=== PATIENT | female | born 1980 | race Caucasian/White ===

== ENCOUNTER 2019-12-21 14:15 | Emergency (ER) | payer OTHER, SELFPAY ==
[2019-12-21 14:27] VITALS: BP 150/104; PULSE 118; RESP 20; TEMP 36.4; O2SAT 99; BMI 23.5
--- NOTE | 2019-12-21 14:37 | ED_ITS ---
HPI - Overdose General Chief Complaint: Overdose Stated Complaint: overdose Time Seen by Provider: 12/21/19 14:32 Source: EMS Mode of arrival: ambulatory Limitations: no limitations History of Present Illness HPI Narrative: 39-year-old female used heroin at 04:00 this morning (1 bag sniffing ), significant other witness her with agonal breathing and gave her Narcan patient, [id number] breathing was started with no CPR. The the patient started to wake up after the Narcan and patient was transported to the hospital. Patient complaining nausea and headache. Patient stated that heroin was used to get high and not to hurt herself. complaint: accidental overdose Related Data Previous Rx's Medication Instructions Recorded penicillin G benzathine 2,400,000 2.4 mmu IM QWEEK 7 Days #4 ml 12/16/19 unit/4 mL intramuscular syringe Allergies Allergy/AdvReac Type Severity Reaction Status Date / Time codeine [CODEINE] Allergy Unknown RASH Verified 12/18/19 13:21 meperidine [Demerol] Allergy Unknown rash Verified 12/18/19 13:21 Review of Systems Review of Systems: Yes all other systems are reviewed and are negative Constitutional: Constitutional: Reports as per HPI Eyes: Eyes: Reports as per HPI ENT: Reports system reviewed and no additional complaints, except as documented Cardiovascular: Cardiovascular: Reports no additional cardiovascular complaints Respiratory: Respiratory: Reports no additional respiratory complaints Gastrointestinal: Gastrointestinal: Reports nausea and Reports vomiting Musculoskeletal: Musculoskeletal: Reports no additional musculoskeletal complaints Neurologic: Reports system reviewed and no additional complaints, except as documented and Reports Abnormal speech present Psychiatric: Psychiatric: Reports no additional psychiatric complaints Endocrine: Endocrine: Reports no additional endocrine complaints [facility] Past Medical History Attestation statement: The following information was validated with the patient. Surgical History History of History of benign breast tumor Family History Family History Father FH: prostate cancer Skin cancer Mother Hypertension Family/Other FH: mental illness Social History Social History Advance Directives: No Advance Directives Information Provided: Yes Physical Exam Vital Signs: Vital Signs: Vital Signs Temp Pulse Resp BP Pulse Ox 12/21/19 14:27 97.5 F 118 H 20 150/104 H 99 Body Mass Index 23.5 Const: General: cooperative and tired appearing Orientation/consciousness: oriented to person, oriented to place and oriented to time HENMT: Head: Yes normal to inspection Ears: hearing grossly normal b ilaterally Eyes: General: appearance normal, both eyes and all related structures Visual Amaya: normal visual amaya by confrontation Corneas: corneas normal Pupils: Equal, round and reactive pupils present Neck: Neck: Yes normal visual inspection Chest: Chest palpation & inspection: normal inspection of the chest Resp: Effort & Inspection: normal respiratory effort and able to speak in complete sentences Cardio: Jugular venous distension: no JVD Rate: regular rate Rhythm: regular rhythm GI: Inspection: Yes normal to inspection Percussion: Yes normal to percussion : General: Yes no CVA tenderness Back/Spine/Pelvis: Back: no CVA tenderness Thoracic/Lumbar Spine: thoracic and lumbar spine normal to inspection Skin: General skin exam: no rashes or lesions noted Neuro: General: oriented to person, oriented to place and oriented to time Cranial nerves: Yes CN's II-XII intact bilaterally and Yes Equal, round and reactive pupils present Speech: Abnormal speech present Extrem: General: Yes normal to inspection Course Course Course Narrative: 39-year-old female history of substance abuse, patient used 1 bag of heroin found by her was given Narcan and transported to the hospital, patient complaining of headache, nausea, and vomiting. Patient has a stable vital sign. MDM - Overdose MDM Narrative Medical decision making narrative: 36-year-old female history of drug abuser, presented after having Narcan after use a bag of heroin. Patient in the emergency department feeling nauseous headache. Leukocytosis probably reactionary to stress. Patient feels better. Patient now is receiving 1 L fluid. Plan is discharge after finished fluid. Medical Records Attestation: I reviewed the patient's medical records. Lab Data Attestation: I reviewed the patient's lab results. Result diagrams: 12/21/19 15:51 12/21/19 15:51 Labs: Lab Results 12/21/19 12/21/19 12/21/19 Range/Units 15:38 15:51 15:51 WBC 16.1 H (4.8-10.8) X10*3/uL RBC 5.04 (4.20-5.50) X10*6/uL Hgb 14.4 (12.0-16.0) g/dl Hct 41.5 (37-47) % MCV 82.3 (80-98) fL MCH 28.6 (27.0-33.0) pg MCHC 34.7 (31.0-35.0) g/dl RDW 14.3 (11.0-16.0) % Plt Count 344 (160-400) X10*3/uL MPV 9.6 (9.4-12.3) fL Absolute Nucleated RBC 0.000 (0.0-0.012) X10*3/uL Nucleated RBC % (auto) 0.0 (0.0-0.2) /100WBC Sodium 134 L (135-145) mmol/L Potassium 4.2 (3.3-5.1) mmol/l Chloride 96 (96-108) mmol/L Carbon Dioxide 21 L (22-29) mmol/L Anion Gap 21 H (12-20) BUN 19 H (9-16) mg/dL Creatinine 0.99 (0.5-1.4) mg/dL Estim Creat Clear Calc 74.9 Estimated GFR > 60 Random Glucose 109 (60-115) mg/dL Calcium 10.4 H (8.4-10.2) mg/dL Urine Color YELLOW Urine Appearance CLOUDY Urine pH 5.5 (5.0-8.0) Ur Specific Eden >= 1.030 H (1.005-1.025) Urine Protein 2+ H (NEG-TRACE) MG/DL Urine Glucose (UA) 500 H (NEG) MG/DL Urine Ketones 5 (NEG) MG/DL Urine Blood TRACE (NEG) Urine Nitrite NEG (NEG) Ur Leukocyte Esterase NEG (NEG) Urine RBC 0-2 (0) /HPF Urine WBC 0 (0-4) /HPF Ur Squamous Epith Cells 4+ /LPF Urine Bacteria 2+ /LPF Ethyl Alcohol mg/dL 12/21/19 Range/Units 15:51 WBC (4.8-10.8) X10*3/uL RBC (4.20-5.50) X10*6/uL Hgb (12.0-16.0) g/dl Hct (37-47) % MCV (80-98) fL MCH (27.0-33.0) pg MCHC (31.0-35.0) g/dl RDW (11.0-16.0) % Plt Count (160-400) X10*3/uL MPV (9.4-12.3) fL Absolute Nucleated RBC (0.0-0.012) X10*3/uL Nucleated RBC % (auto) (0.0-0.2) /100WBC Sodium (135-145) mmol/L Potassium (3.3-5.1) mmol/l Chloride (96-108) mmol/L Carbon Dioxide (22-29) mmol/L Anion Gap (12-20) BUN (9-16) mg/dL Creatinine (0.5-1.4) mg/dL Estim Creat Clear Calc Estimated GFR Random Glucose (60-115) mg/dL Calcium (8.4-10.2) mg/dL Urine Color Urine Appearance Urine pH (5.0-8.0) Ur Specific Eden (1.005-1.025) Urine Protein (NEG-TRACE) MG/DL Urine Glucose (UA) (NEG) MG/DL Urine Ketones (NEG) MG/DL Urine Blood (NEG) Urine Nitrite (NEG) Ur Leukocyte Esterase (NEG) Urine RBC (0) /HPF Urine WBC (0-4) /HPF Ur Squamous Epith Cells /LPF Urine Bacteria /LPF Ethyl Alcohol < 10 mg/dL Discharge Plan Discharge Clinical Impression: Heroin overdose Patient Disposition: Home, Self-Care Instructions: Opioid Use Disorder (ED) Prescriptions: No Action penicillin G benzathine 2,400,000 unit/4 mL syringe 2.4 mmu IM QWEEK 7 Days Qty: 4 RF: 0
[2019-12-21 15:43] LABS: Appearance Urine CLOUDY; Color Urine YELLOW; Glucose Urine UA 500 MG/DL (NEG); Leukocyte Esterase Urine NEG (NEG); Nitrite Urine NEG (NEG); PH 5.5 (5.0-8.0); Specific Gravity - Urine >= 1.030 (1.005-1.025); Urine Blood TRACE (NEG); Urine Ketones 5 MG/DL (NEG); Urine Protein 2+ MG/DL (NEG-TRACE)
[2019-12-21 15:52] LABS: Bacteria Urine 2+ /LPF; RBC Urine 0-2 /HPF (0); Squamous Epithelial Cell Urine 4+ /LPF; WBC Urine 0 /HPF (0-4)
[2019-12-21 15:56] LABS: Hematocrit 41.5 % (37-47); Hemoglobin 14.4 g/dl (12.0-16.0); Mean Corpuscular HGB Conc 34.7 g/dl (31.0-35.0); Mean Corpuscular Hemoglobin 28.6 pg (27.0-33.0); Mean Corpuscular Volume 82.3 fL (80-98); Mean Platelet Volume 9.6 fL (9.4-12.3); Platelet Count 344 X10*3/uL (160-400); Red Blood Count 5.04 X10*6/uL (4.20-5.50); Red Cell Distribution Width 14.3 % (11.0-16.0); White Blood Count 16.1 X10*3/uL (4.8-10.8)
[2019-12-21] MEDS: 0.9 % Sodium Chloride 1,000 ML 999 ML IVCONT (16:00)
[2019-12-21] MEDS: ondansetron HCL 4 MG/2 ML VIAL IVPUSH (16:00)
[2019-12-21] MEDS: Acetaminophen 325 MG TABLET 650 MG PO (16:00)
[2019-12-21 16:25] LABS: Ethanol < 10 mg/dL
[2019-12-21 16:32] LABS: Anion Gap 21 (12-20); Blood Urea Nitrogen 19 mg/dL (9-16); Calcium 10.4 mg/dL (8.4-10.2); Carbon Dioxide 21 mmol/L (22-29); Chloride 96 mmol/L (96-108); Creatinine Clr Calc Pharmacy 74.9; Estimated Glomerular Filt Rate > 60; Glucose Random 109 mg/dL (60-115); Potassium 4.2 mmol/l (3.3-5.1); Sodium 134 mmol/L (135-145)
[2019-12-21 17:30] LABS: Alanine Aminotransferase 33 U/L (0-31); Albumin Level 4.9 g/dL (3.5-5.0); Alkaline Phosphatase 103 U/L (39-117); Aspartate Amino Transferase 33 U/L (5-31); Bilirubin Direct 0.2 mg/dL (0.0-0.5); Bilirubin Total 0.4 mg/dL (0.0-1.0); Lipase 25 U/L (8-78); Total Protein 9.4 g/dL (6.5-8.0)
[2019-12-21 17:31] VITALS: BP 119/75; PULSE 90; RESP 16; TEMP 37.3; O2SAT 92
[2019-12-21 18:07] VITALS: BP 117/88; PULSE 88; RESP 18
== END 2019-12-21 18:11 | disposition home or self-care (01) ==
PROVIDERS: Emergency Provider Emergency Medicine; PCP Internal Medicine
DX: T40.1X1A Poisoning by heroin, accidental (unintentional), initial encounter (principal); R06.89 Other abnormalities of breathing; Y92.009 Unspecified place in unspecified non-institutional (private) residence as the place of occurrence of the external cause; F11.10 Opioid abuse, uncomplicated
CPT/HCPCS: 36415; 80048; 80076; 80320; 81001; 83690; 85027; 96361; 96374; 99285; J2405

== ENCOUNTER 2019-12-28 23:15 | Emergency (ER) | payer OTHER, SELFPAY ==
[2019-12-28 23:44] VITALS: BP 135/85; PULSE 92; RESP 16; TEMP 36.8; O2SAT 97; BMI 23.5
--- NOTE | 2019-12-28 23:45 | ED.GENADULT ---
HPI - General Adult General Chief complaint: Medical Clearance Stated complaint: medical clearance Time Seen by Provider: 12/28/19 23:40 Source: patient Mode of arrival: ambulatory Limitations: no limitations History of Present Illness HPI narrative: has no symptoms, needs to go to rehab, her titers are still positive for syphillis needs repeat medications MD complaint: syphillis titers still positive after IM PCN 1 month ago Onset (ago): month(s) (1) Radiation: non-radiation Severity: mild Relieving factors: none Exacerbating factors: none Associated symptoms: denies other symptoms Related Data Previous Rx's Medication Instructions Recorded doxycycline hyclate 100 mg PO BID 14 Days #28 cap 12/28/19 Allergies Allergy/AdvReac Type Severity Reaction Status Date / Time codeine [CODEINE] Allergy Unknown RASH Verified 12/18/19 13:21 meperidine [Demerol] Allergy Unknown rash Verified 12/18/19 13:21 Review of Systems Review of Systems: Constitutional : No Fever, No Chills Eyes: No Eye Pain, No Swelling, No Redness, No Foreign Body Cardiovascular : No Chest Pain, No SOB Respiratory : No Cough, No Dyspnea Gastrointestinal : No Nausea, No Vomiting, No Diarrhea, No abdominal Pain Genitourinary : No Dysuria, No Hematuria, no discharge Musculoskeletal : no joint pain, No Myalgias, No Joint Swelling Skin : No Skin lacerations, No rash Neuro : No Weakness, No Numbness, No Dizziness All other systems reviewed and are negative [facility] Past Medical History Medical History (Updated 12/28/19 @ 23:48 by Alea Paige) Bipolar depression Hepatitis C Surgical History History of History of benign breast tumor Family History Family History Father FH: prostate cancer Skin cancer Mother Hypertension Family/Other FH: mental illness Social History Social History (Updated 12/28/19 @ 23:51 by Essence Arciniega DO) Alcohol intake: unknown Smoking Status: Unknown if ever smoked Substance Use Type: Former Substance User Physical Exam Vital Signs: Appearance: Alert. Oriented X3. No acute distress. Eyes: Pupils equal, round and reactive to light. ENT: Pharynx normal. Neck: Normal inspection. Neck supple. CVS: Normal heart rate and rhythm. Pulses normal. Respiratory: No respiratory distress. Breath sounds normal. Abdomen: Soft and nontender. Skin: Skin warm and dry. Normal skin color. Normal skin turgor. Extremities: No lower extremity edema. No calf ttp Neuro: Oriented X 3. No motor deficit. No sensory deficit. Medical Decision Making MDM Narrative Medical decision making narrative: needs detox clearance had syphillis early (just rash) given IM PCN 1 month ago, titers still positive no symptoms at this time will treat with doxy for 14 days and refer to PCP. Discharge Plan Discharge Clinical Impression: Syphilis Patient Disposition: Home, Self-Care Instructions: Syphilis (ED) Additional Instructions: YOU ARE MEDICALLY CLEARED FOR TREATMENT AT A REHAB FACILITY Prescriptions: New doxycycline hyclate 100 mg capsule 100 mg PO BID 14 Days Qty: 28 RF: 0 Referrals: Jenna Emerson MD [Primary Care Provider] - 2 days (recheck titers )
--- NOTE | 2019-12-28 23:54 | PC.NURSE ---
THIS NURSE AND DR RAINES DISCUSSED WITH PATIENT ABOUT SI. DENIES ANY SI AT THIS TIME.
== END 2019-12-29 00:09 | disposition home or self-care (01) ==
LOC: HO.ED 23:59
PROVIDERS: Emergency Provider Emergency Medicine; PCP Internal Medicine
DX: A53.9 Syphilis, unspecified (principal); Z79.899 Other long term (current) drug therapy
CPT/HCPCS: 99283

== ENCOUNTER → 2020-01-28 08:29 | Outpatient (BNVA) | payer OTHER, SELFPAY | PROVIDERS: PCP Internal Medicine; Referring Provider Internal Medicine; Visit Provider Physician Assistant | DX: Z76.89 Persons encountering health services in other specified circumstances (principal) ==

== ENCOUNTER 2020-02-07 12:52 | Outpatient (REF) | payer OTHER, SELFPAY ==
[2020-02-07 14:18] LABS: MANUAL DIFF FLAG NO
[2020-02-07 14:22] LABS: Basophils Percent Auto 0.4 % (0-2); Eosinophils Absolute Auto 0.3 X10*3/uL (0.0-0.4); Eosinophils Percent Auto 4.6 % (0-4); Hematocrit 36.7 % (37-47); Hemoglobin 12.7 g/dl (12.0-16.0); Imm Gran Abs Auto 0.01 X10*3/uL (0.00-0.03); Imm Gran Pct Auto 0.1 % (0.0-0.4); Lymphocytes Percent Auto 43.7 % (20-40); Mean Corpuscular HGB Conc 34.6 g/dl (31.0-35.0); Mean Corpuscular Volume 86.6 fL (80-98); Mean Platelet Volume 11.2 fL (9.4-12.3); Monocytes Absolute Auto 0.3 X10*3/uL (0.1-1.2); Monocytes Percent Auto 4.7 % (2-11); Neutrophils Absolute Auto 3.2 X10*3/uL (2.0-8.3); Neutrophils Percent Auto 46.5 % (45-73); Platelet Count 194 X10*3/uL (160-400); Red Blood Count 4.24 X10*6/uL (4.20-5.50); White Blood Count 6.8 X10*3/uL (4.8-10.8)
[2020-02-07 15:01] LABS: Alanine Aminotransferase 24 U/L (0-31); Albumin Level 4.3 g/dL (3.5-5.0); Alkaline Phosphatase 69 U/L (39-117); Anion Gap 12 (12-20); Aspartate Amino Transferase 24 U/L (5-31); Bilirubin Total 0.3 mg/dL (0.0-1.0); Blood Urea Nitrogen 10 mg/dL (9-16); Carbon Dioxide 28 mmol/L (22-29); Chloride 102 mmol/L (96-108); Estimated Glomerular Filt Rate > 60; Glucose Random 95 mg/dL (60-115); Potassium 4.1 mmol/l (3.3-5.1); Sodium 138 mmol/L (135-145); Total Protein 7.7 g/dL (6.5-8.0)
[2020-02-07 15:08] LABS: HCG Quantitative < 2 mIU/mL
[2020-02-07 15:21] LABS: Syphilis Screen Reactive (Nonreactive)
[2020-02-10 08:03] LABS: HIV AB/AG Nonreactive (Nonreactive); HIV Num 1 0.19 S/CO (0.00-0.99)
[2020-02-13 23:03] LABS: Hepatitis C Genotype Not Detected
[2020-02-17 14:14] LABS: RPR Quantitative Reactive 1:2 (Nonreactive)
[2020-02-17 14:15] LABS: T.Pallidum Particle Agg Test Reactive (Nonreactive)
== END 2020-02-07 12:53 | disposition home or self-care (01) ==
LOC: HO.LAB 12:52
PROVIDERS: Absent Provider Physician Assistant; PCP Internal Medicine; Referring Provider Internal Medicine; Visit Provider Internal Medicine
DX: A53.9 Syphilis, unspecified (principal); R11.0 Nausea; R10.11 Right upper quadrant pain; B19.20 Unspecified viral hepatitis C without hepatic coma; F11.90 Opioid use, unspecified, uncomplicated
CPT/HCPCS: 36415; 80053; 84702; 85025; 86592; 86780; 87389; 87902

== ENCOUNTER → 2020-02-25 13:19 | Outpatient (BNVA) | payer OTHER, SELFPAY | PROVIDERS: PCP Internal Medicine; Referring Provider Internal Medicine; Visit Provider Physician Assistant | DX: Z76.89 Persons encountering health services in other specified circumstances (principal) ==

== ENCOUNTER 2020-03-11 08:23 | Outpatient (REF) | payer OTHER, SELFPAY | END 2020-03-11 08:24 | disposition home or self-care (01) | LOC: HO.LAB 08:23 | PROVIDERS: PCP Internal Medicine; Visit Provider Physician Assistant | DX: B17.10 Acute hepatitis C without hepatic coma (principal) | CPT/HCPCS: 36415; 87522 ==

== ENCOUNTER → 2020-03-18 12:22 | Outpatient (BNVA) | payer OTHER, SELFPAY | PROVIDERS: PCP Internal Medicine; Visit Provider Physician Assistant | DX: Z76.89 Persons encountering health services in other specified circumstances (principal) ==

== ENCOUNTER 2020-03-25 07:20 | Outpatient (REF) | payer OTHER, SELFPAY ==
[2020-03-25 08:26] LABS: Alanine Aminotransferase 57 U/L (0-31); Albumin Level 4.3 g/dL (3.5-5.0); Alkaline Phosphatase 97 U/L (39-117); Aspartate Amino Transferase 39 U/L (5-31); Bilirubin Direct < 0.2 mg/dL (0.0-0.5); Bilirubin Total 0.2 mg/dL (0.0-1.0); Total Protein 7.8 g/dL (6.5-8.0)
[2020-03-25 09:53] LABS: HBS Num1 18.17 mIU/mL (0-7.99); HBc Num1 0.14 S/CO (0.00-0.79); HBsAGNum1 0.15 S/CO (0.00-0.99); Hepatitis B Core Antibody Nonreactive (Nonreactive); Hepatitis B Surface Antigen Negative (Negative); ~Hepatitis B Surface Antibody REACTIVE (Nonreactive)
[2020-03-26 11:53] LABS: Hepatitis B Viral DNA Qn - cp <1.00 NOT DETECTED Log IU/mL (NOT DETECTED); Hepatitis B Viral DNA Qn-IU/mL <10 NOT DETECTED IU/mL (NOT DETECTED)
[2020-03-26 12:12] LABS: Hepatitis BE Antibody NON-REACTIVE (NON-REACTIVE); Hepatitis BE Antigen NON-REACTIVE (NON-REACTIVE)
== END 2020-03-25 07:21 | disposition home or self-care (01) ==
LOC: HO.LAB 07:20
PROVIDERS: PCP Internal Medicine; Visit Provider Physician Assistant
DX: R74.01 Elevation of levels of liver transaminase levels (principal); B18.1 Chronic viral hepatitis B without delta-agent; B19.20 Unspecified viral hepatitis C without hepatic coma; R10.11 Right upper quadrant pain
CPT/HCPCS: 36415; 80076; 86704; 86706; 86707; 87340; 87350; 87517

== ENCOUNTER → 2020-03-30 09:27 | Outpatient (BNVA) | payer OTHER, SELFPAY | PROVIDERS: PCP Internal Medicine; Visit Provider Physician Assistant ==

== ENCOUNTER → 2020-04-09 11:34 | Outpatient (BNVA) | payer OTHER, SELFPAY | PROVIDERS: PCP Internal Medicine; Visit Provider Physician Assistant ==

== ENCOUNTER 2020-09-11 17:08 | Outpatient (REF) | payer OTHER, SELFPAY ==
[2020-09-12 13:35] LABS: BV Int Neg Control Negative (Negative); BV Int Pos Control Positive (Positive)
== END 2020-09-11 17:09 | disposition home or self-care (01) ==
LOC: HO.LNP 17:08
PROVIDERS: Visit Provider Hospitalist
DX: N76.0 Acute vaginitis (principal)
CPT/HCPCS: 87480; 87510; 87660

== ENCOUNTER 2021-01-26 02:09 | Emergency (ER) | payer OTHER, SELFPAY ==
[2021-01-26 02:16] VITALS: BP 131/79; PULSE 93; RESP 20; TEMP 36.6; O2SAT 98; BMI 26.9
[2021-01-26 02:44] VITALS: BP 124/77; PULSE 83; RESP 14; TEMP 37.2; O2SAT 96
[2021-01-26 02:56] LABS: MANUAL DIFF FLAG NO
[2021-01-26 02:57] LABS: Basophils Percent Auto 0.3 % (0-2); Eosinophils Absolute Auto 0.7 X10*3/uL (0.0-0.4); Eosinophils Percent Auto 8.2 % (0-4); Hematocrit 38.9 % (37.0-47.0); Hemoglobin 13.2 g/dl (12.0-16.0); Imm Gran Abs Auto 0.01 X10*3/uL (0.00-0.03); Imm Gran Pct Auto 0.1 % (0.0-0.4); Lymphocytes Absolute Auto 2.6 X10*3/uL (1.2-4.9); Lymphocytes Percent Auto 29.6 % (20-40); Mean Corpuscular HGB Conc 33.9 g/dl (31.0-35.0); Mean Corpuscular Hemoglobin 29.8 pg (27.0-33.0); Mean Corpuscular Volume 87.8 fL (80.0-98.0); Mean Platelet Volume 9.9 fL (9.4-12.3); Monocytes Absolute Auto 0.4 X10*3/uL (0.1-1.2); Monocytes Percent Auto 4.5 % (2-11); Neutrophils Percent Auto 57.3 % (45-73); Platelet Count 261 X10*3/uL (160-400); Red Blood Count 4.43 X10*6/uL (4.20-5.50); Red Cell Distribution Width 12.6 % (11.0-16.0); White Blood Count 8.7 X10*3/uL (4.8-10.8)
--- NOTE | 2021-01-26 02:59 | ED_ITS ---
HPI - Skin/Abscess/Foreign Bdy General Chief complaint: Skin/Abscess/Foreign Body Stated complaint: ? Infection Time Seen by Provider: 01/26/21 02:59 Source: patient Mode of arrival: ambulatory Limitations: no limitations History of Present Illness HPI narrative: 40-year-old female came in for evaluation of possible infected area on the face For 1 week. Patient declined any fever or chills, patient had those spots in the past was given antibiotic and patient felt better. Related Data Previous Rx's Medication Instructions Recorded paroxetine HCl 40 mg tablet 40 mg PO DAILY 90 Days #90 tab 04/09/20 gabapentin 600 mg tablet 600 mg PO BID 30 Days #60 tab 12/16/20 clonidine HCl 0.1 mg tablet 0.1 mg PO BID 30 Days #60 tab 01/03/21 hydroxyzine HCl 50 mg tablet 50 mg PO BID PRN 30 Days #60 tab 01/03/21 risperidone 2 mg tablet 2 mg PO BEDTIME 30 Days #30 tab 01/04/21 trazodone 50 mg tablet 100 mg PO BEDTIME PRN 90 Days #180 01/04/21 tab baclofen 10 mg tablet 10 mg PO TID 30 Days #90 tab 01/11/21 doxycycline hyclate 100 mg capsule 100 mg PO BID #14 cap 01/26/21 Allergies Allergy/AdvReac Type Severity Reaction Status Date / Time codeine [CODEINE] Allergy Intermediate RASH Verified 10/28/20 15:40 meperidine [Demerol] Allergy Intermediate rash Verified 10/28/20 15:40 Review of Systems Review of Systems: All other systems are reviewed and are negative Constitutional: Reports as per HPI and Reports no additional constitutional complaints Eyes: Reports as per HPI and Reports no additional eye complaints Reports system reviewed and no additional complaints, except as documented Cardiovascular: Reports as per HPI and Reports no additional cardiovascular complaints Respiratory: Reports as per HPI and Reports no additional respiratory complaints Gastrointestinal: Reports as per HPI and Reports no additional gastrointestinal complaints Genitourinary: Reports no additional female genitourinary complaints Musculoskeletal: Reports no additional musculoskeletal complaints Skin/Breast: Reports system reviewed and no additional complaints, except as docu Psychiatric: Reports no additional psychiatric complaints Endocrine: Reports no additional endocrine complaints Hematologic/Lymphatic: Reports no additional hematologic/lymphatic complaints Allergic/Immunologic: Reports no additional allergic/immunologic complaints Reports system reviewed and no additional complaints, except as documented and Reports Abnormal speech present PMFSH Past Medical History Medical History Bipolar depression HCV (hepatitis C virus) Hepatitis C Syphilis Surgical History History of History of benign breast tumor History of meniscectomy of left knee Family History Family History Father FH: prostate cancer Skin cancer Mother Hypertension Family/Other FH: mental illness Social History Social History Household Members: Children Household Members Other:: son Housing: Condominium Alcohol intake: current Alcohol intake frequency: a few times a week Alcohol type: hard liquor Patient Tobacco Use Status: Current everyday Tobacco user Cigarettes Per Day: 6 Substance Use Type: Crack/Cocaine, Former Substance User, IV Drugs and Marijuana Advance Directives: No Advance Directives Information Provided: No service: No Current occupational status: employed Current occupation: [employer] Physical Exam Vital Signs: Vital Signs: Last Vital Signs Temp 98.9 F 01/26/21 02:44 Pulse 83 01/26/21 02:44 Resp 14 01/26/21 02:44 BP 124/77 01/26/21 02:44 Pulse Ox 96 01/26/21 02:44 Body Mass Index 26.9 vital signs have been reviewed as appeared to be correct. Blood pressure normal. Heart rate normal. Respiration rate normal. Temperature normal. Oxygen saturation normal. Appearance: Alert. Oriented X3. No acute distress. Head: Normal external exam. Normocephalic. Atraumatic. No Avina signs noted. No raccoon eyes noted Facial exam: Multiple areas of maculopapular redness around the mouth and on the cheek. No fluctuation. Eyes: PERRLA. EOMI. Conjunctiva and sclera normal. Eyelids normal. ENT: TM's Normal. Pharynx normal. Uvula midline. Moist mucous membranes. No trismus noted. No drooling noted. No muffled voice noted. Neck: Normal inspection. Neck supple. FROM. No adenopathy. Thyroid Normal. No meningeal signs. No neck mass noted. CVS: Normal heart rate and rhythm. Heart sound normal. No murmurs noted. Pulses normal throughout. Respiratory: No respiratory distress. Painless inspiration. Breath sounds normal. No wheezes/rales/rhonchi noted. Chest nontender. No accessory muscle usage noted or decreased air movement noted. Abdomen: Soft and nontender. Bowel sounds normal in all 4 quadrants. No distention noted. No organomegaly noted. No visible injury noted. Back: No CVA tenderness. Full range of motion noted. Skin: Skin warm and dry. Normal skin color. Normal skin turgor. No rashes/lesions/lacerations noted. Extremities: No lower extremity edema. Extremities exhibit normal range of motion. Extremities nontender. Neuro: Oriented X 3. Cranial nerve exam: II-XII are grossly intact No motor deficit. No sensory deficit. Reflexes normal. Course Course Course Narrative: Assessment and plan. 40-year-old female came in with areas of cellulitis on the face. I explained the patient past to treated as impetigo with a mupirocin but patient is insisting to take systemic antibiotic instead. MDM - Skin/Abscess/Foreign Bdy Lab Data Result diagrams: 01/26/21 02:52 01/26/21 02:52 Discharge Plan Discharge Clinical Impression: Impetigo Patient Disposition: Home, Self-Care Instructions: Impetigo (ED) Prescriptions: New doxycycline hyclate 100 mg capsule 100 mg PO BID Qty: 14 RF: 0 No Action paroxetine HCl 40 mg tablet 40 mg PO DAILY 90 Days Qty: 90 RF: 3 gabapentin 600 mg tablet 600 mg PO BID 30 Days Qty: 60 RF: 1 hydroxyzine HCl 50 mg tablet 50 mg PO BID PRN (Reason: anxiety) 30 Days Qty: 60 RF: 6 clonidine HCl 0.1 mg tablet 0.1 mg PO BID 30 Days Qty: 60 RF: 3 risperidone 2 mg tablet 2 mg PO BEDTIME 30 Days Qty: 30 RF: 0 trazodone 50 mg tablet 100 mg PO BEDTIME PRN (Reason: sleep) 90 Days Qty: 180 RF: 1 baclofen 10 mg tablet 10 mg PO TID 30 Days Qty: 90 RF: 2 Referrals: Jenna Emerson MD [Primary Care Provider] - 2 days
[2021-01-26 03:19] LABS: Anion Gap 13 (12-20); Blood Urea Nitrogen 12 mg/dL (9-16); Calcium 9.5 mg/dL (8.4-10.2); Carbon Dioxide 26 mmol/L (22-29); Chloride 104 mmol/L (96-108); Creatinine Clr Calc Pharmacy 92.3; Estimated Glomerular Filt Rate > 60; Glucose Random 123 mg/dL (60-115); Potassium 3.7 mmol/L (3.3-5.1); Sodium 139 mmol/L (135-145)
== END 2021-01-26 03:12 | disposition home or self-care (01) ==
PROVIDERS: Emergency Provider Emergency Medicine; PCP Internal Medicine
DX: L01.00 Impetigo, unspecified (principal); F14.10 Cocaine abuse, uncomplicated; F11.10 Opioid abuse, uncomplicated; F17.200 Nicotine dependence, unspecified, uncomplicated; Z71.6 Tobacco abuse counseling; Z79.899 Other long term (current) drug therapy
CPT/HCPCS: 36415; 80048; 85025; 99284

== ENCOUNTER 2021-01-28 02:47 | Emergency (ER) | payer OTHER, SELFPAY ==
[2021-01-28 02:51] VITALS: BP 138/75; PULSE 86; RESP 18; O2SAT 98; BMI 26.6
--- NOTE | 2021-01-28 03:52 | ED_ITS ---
HPI - General Adult General Chief complaint: General Medical Stated complaint: infection Time Seen by Provider: 01/28/21 03:30 Source: patient Mode of arrival: ambulatory Limitations: no limitations History of Present Illness HPI narrative: Patient with history of anxiety the scratch all the time her face comes here with scratches on the face with folliculitis seen her PCP was prescribed clindamycin which is not covered by her insurance Related Data Previous Rx's Medication Instructions Recorded paroxetine HCl 40 mg tablet 40 mg PO DAILY 90 Days #90 tab 04/09/20 gabapentin 600 mg tablet 600 mg PO BID 30 Days #60 tab 12/16/20 clonidine HCl 0.1 mg tablet 0.1 mg PO BID 30 Days #60 tab 01/03/21 hydroxyzine HCl 50 mg tablet 50 mg PO BID PRN 30 Days #60 tab 01/03/21 risperidone 2 mg tablet 2 mg PO BEDTIME 30 Days #30 tab 01/04/21 trazodone 50 mg tablet 100 mg PO BEDTIME PRN 90 Days #180 01/04/21 tab baclofen 10 mg tablet 10 mg PO TID 30 Days #90 tab 01/11/21 doxycycline hyclate 100 mg capsule 100 mg PO BID #14 cap 01/26/21 doxycycline hyclate 100 mg tablet 100 mg PO BID #20 tab 01/28/21 Allergies Allergy/AdvReac Type Severity Reaction Status Date / Time codeine [CODEINE] Allergy Intermediate RASH Verified 01/28/21 02:49 meperidine [Demerol] Allergy Intermediate rash Verified 01/28/21 02:49 Review of Systems Review of Systems: Yes all other systems are reviewed and are negative PMFSH Past Medical History Medical History Bipolar depression HCV (hepatitis C virus) Hepatitis C Syphilis Surgical History History of History of benign breast tumor History of meniscectomy of left knee Family History Family History Father FH: prostate cancer Skin cancer Mother Hypertension Family/Other FH: mental illness Social History Social History Household Members: Children Household Members Other:: son Housing: Condominium Alcohol intake: unknown Patient Tobacco Use Status: Current everyday Tobacco user Cigarettes Per Day: 6 Substance Use Type: Crack/Cocaine, Former Substance User, IV Drugs and Mariju avel Advance Directives: No Advance Directives Information Provided: Yes Patient : No service: No Current occupational status: employed Current occupation: [employer] Physical Exam Vital Signs: Vital Signs: Last Vital Signs Pulse 86 01/28/21 02:51 Resp 18 01/28/21 02:51 BP 138/75 01/28/21 02:51 Pulse Ox 98 01/28/21 02:51 Body Mass Index 26.6 Const: General: comfortable and no acute distress HENMT: Face images: 1. Multiple small folliculitis marked on the face with surrounding inflammation Skin: Other: Multiple scratch tony with folliculitis of the face with surrounding inflammation no deeper abscess Discharge Plan Discharge Clinical Impression: Folliculitis Patient Disposition: Home, Self-Care Instructions: Folliculitis (ED) Additional Instructions: Local care advised stop scratching your face Take antibiotics as advised Prescriptions: New doxycycline hyclate 100 mg tablet 100 mg PO BID Qty: 20 RF: 0 No Action paroxetine HCl 40 mg tablet 40 mg PO DAILY 90 Days Qty: 90 RF: 3 gabapentin 600 mg tablet 600 mg PO BID 30 Days Qty: 60 RF: 1 hydroxyzine HCl 50 mg tablet 50 mg PO BID PRN (Reason: anxiety) 30 Days Qty: 60 RF: 6 clonidine HCl 0.1 mg tablet 0.1 mg PO BID 30 Days Qty: 60 RF: 3 risperidone 2 mg tablet 2 mg PO BEDTIME 30 Days Qty: 30 RF: 0 trazodone 50 mg tablet 100 mg PO BEDTIME PRN (Reason: sleep) 90 Days Qty: 180 RF: 1 baclofen 10 mg tablet 10 mg PO TID 30 Days Qty: 90 RF: 2 doxycycline hyclate 100 mg capsule 100 mg PO BID Qty: 14 RF: 0
--- NOTE | 2021-01-28 03:59 | PC.NURSE ---
pt was seen by provider and then went to leave and pt was told to wait you have a medication coming and your discharge papers. pt was not present when medication was ready and not seen in the ed or waiting room. pt does know that her new script has been sent to her pharmacy. pt will pick up attendant the medication at the pharmacy.
== END 2021-01-28 03:57 | disposition home or self-care (01) ==
LOC: HO.ED 03:42
PROVIDERS: Emergency Provider Internal Medicine; PCP Internal Medicine
DX: L73.9 Follicular disorder, unspecified (principal); F14.10 Cocaine abuse, uncomplicated; F11.10 Opioid abuse, uncomplicated; F12.10 Cannabis abuse, uncomplicated; F17.200 Nicotine dependence, unspecified, uncomplicated; Z71.6 Tobacco abuse counseling; Z79.899 Other long term (current) drug therapy
CPT/HCPCS: 99283

== ENCOUNTER 2021-03-17 17:04 | Emergency (ER) | payer OTHER, SELFPAY | END 2021-03-17 17:48 | disposition left against medical advice (07) | LOC: HO.ED 17:31 | PROVIDERS: Emergency Provider Emergency Medicine; PCP Internal Medicine | DX: L08.9 Local infection of the skin and subcutaneous tissue, unspecified (principal) ==

== ENCOUNTER 2021-04-30 12:26 | Emergency (ER) | payer OTHER, SELFPAY ==
[2021-04-30 12:30] VITALS: BP 132/84; PULSE 92; O2SAT 100
[2021-04-30 12:33] VITALS: BP 108/64; PULSE 79; RESP 17; TEMP 36.7; O2SAT 98; BMI 24.3
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
[2021-04-30] MEDS: cefTRIAXone sodium 500 MG, Lidocaine HCl 1 % MPF 1 ML IM (13:02)
[2021-04-30 13:23] LABS: Appearance Urine CLEAR; Color Urine YELLOW; Glucose Urine UA NEG (NEG); Leukocyte Esterase Urine NEG (NEG); Nitrite Urine NEG (NEG); Specific Gravity - Urine >= 1.030 (1.005-1.025); Urine Blood NEG (NEG); Urine Ketones NEG (NEG); Urine Protein NEG (NEG-TRACE)
[2021-04-30 13:24] LABS: UPreg QC Valid YES; Urine Pregnancy NEGATIVE (NEGATIVE)
[2021-04-30 15:03] LABS: CT PCR NOT DETECTED (Not Detect.); NG PCR NOT DETECTED (Not Detect.)
[2021-05-01 11:57] LABS: BV Int Neg Control Negative (Negative); BV Int Pos Control Positive (Positive)
== END 2021-04-30 14:38 | disposition home or self-care (01) ==
PROVIDERS: Physician Assistant; Emergency Provider Emergency Medicine; PCP Internal Medicine
DX: S20.213A Contusion of bilateral front wall of thorax, initial encounter (principal); N89.8 Other specified noninflammatory disorders of vagina; F14.10 Cocaine abuse, uncomplicated; F12.10 Cannabis abuse, uncomplicated; Y99.9 Unspecified external cause status; V43.52XA Car driver injured in collision with other type car in traffic accident, initial encounter; Y93.9 Activity, unspecified; Y92.410 Unspecified street and highway as the place of occurrence of the external cause; F17.210 Nicotine dependence, cigarettes, uncomplicated; Z71.6 Tobacco abuse counseling; Z79.899 Other long term (current) drug therapy
CPT/HCPCS: 81003; 81025; 87480; 87491; 87510; 87591; 87660; 96372; 99283; 99284; J0696

== ENCOUNTER 2021-05-03 15:42 | Outpatient (REF) | payer OTHER, SELFPAY ==
--- NOTE | ~2021-05-03 | XR_ITS ---
EXAMINATION: XR CERVICAL SPINE CLINICAL INFORMATION: Neck pain COMPARISON: None TECHNIQUE: 3 views of the cervical spine were obtained. FINDINGS: There are no prevertebral soft tissue or bony abnormalities demonstrated. No compression fractures or subluxations are identified. Alignment is maintained at the atlanto-axial articulation. The disc spaces are preserved. No endplate changes are seen. The prevertebral soft tissues are normal. The foramina are patent. XR/XR cervical spine 2V IMPRESSION: Unremarkable examination.
--- NOTE | ~2021-05-03 | XR_ITS ---
EXAMINATION: XR CHEST CLINICAL INFORMATION: Chest pain COMPARISON: None TECHNIQUE: 2 views of the chest were obtained. FINDINGS: The cardiac and mediastinal contours are stable. There is increased density at the right lung apex. This is not seen on cervical spine x-ray done the same day and likely represents something from clothing or hair. The lungs are otherwise clear. There is no pleural effusion or pneumothorax. Bony structures are normal. XR/XR chest 2V IMPRESSION: No evidence for acute disease in the chest.
== END 2021-05-03 15:43 | disposition home or self-care (01) ==
LOC: HO.XRAY 15:42
PROVIDERS: PCP Internal Medicine; Visit Provider Internal Medicine
DX: M54.2 Cervicalgia (principal); R07.9 Chest pain, unspecified
CPT/HCPCS: 71046; 72040

== ENCOUNTER 2021-05-05 14:56 | Outpatient (REF) | payer OTHER, SELFPAY ==
[2021-05-05 15:47] LABS: MANUAL DIFF FLAG NO
[2021-05-05 15:50] LABS: Basophils Percent Auto 0.3 % (0-2); Eosinophils Absolute Auto 0.2 X10*3/uL (0.0-0.4); Eosinophils Percent Auto 2.6 % (0-4); Hematocrit 37.2 % (37.0-47.0); Hemoglobin 12.5 g/dl (12.0-16.0); Imm Gran Abs Auto 0.01 X10*3/uL (0.00-0.03); Imm Gran Pct Auto 0.2 % (0.0-0.4); Lymphocytes Absolute Auto 2.7 X10*3/uL (1.2-4.9); Lymphocytes Percent Auto 41.4 % (20-40); Mean Corpuscular HGB Conc 33.6 g/dl (31.0-35.0); Mean Corpuscular Hemoglobin 30.3 pg (27.0-33.0); Mean Corpuscular Volume 90.3 fL (80.0-98.0); Mean Platelet Volume 10.4 fL (9.4-12.3); Monocytes Absolute Auto 0.3 X10*3/uL (0.1-1.2); Monocytes Percent Auto 4.8 % (2-11); Neutrophils Absolute Auto 3.3 x10*3/uL (2.0-8.3); Neutrophils Percent Auto 50.7 % (45-73); Platelet Count 239 X10*3/uL (160-400); Red Blood Count 4.12 X10*6/uL (4.20-5.50); Red Cell Distribution Width 12.3 % (11.0-16.0); White Blood Count 6.5 X10*3/uL (4.8-10.8)
[2021-05-05 16:13] LABS: Alanine Aminotransferase 55 U/L (0-31); Albumin Level 4.2 g/dL (3.5-5.0); Alkaline Phosphatase 70 U/L (39-117); Anion Gap 11 (12-20); Aspartate Amino Transferase 46 U/L (5-31); Bilirubin Total 0.3 mg/dL (0.0-1.0); Blood Urea Nitrogen 13 mg/dL (9-16); Calcium 9.3 mg/dL (8.4-10.2); Carbon Dioxide 25 mmol/L (22-29); Chloride 106 mmol/L (96-108); Estimated Glomerular Filt Rate > 60; Glucose Random 104 mg/dL (60-115); Potassium 4.2 mmol/L (3.3-5.1); Sodium 138 mmol/L (135-145); Total Protein 7.3 g/dL (6.5-8.0)
[2021-05-06 04:33] LABS: HBS Num1 14.26 mIU/mL (0-7.99); ~Hepatitis B Surface Antibody REACTIVE (Nonreactive)
[2021-05-06 04:40] LABS: HBsAGNum1 0.21 S/CO (0.00-0.99); HIV AB/AG Nonreactive (Nonreactive); HIV Num 1 0.06 S/CO (0.00-0.99); Hepatitis B Surface Antigen Negative (Negative)
[2021-05-09 09:17] LABS: HCV RNA PCR Qn 2.63 Log IU/mL (NOT DETECTED); HCV RNA PCR Qn 426 IU/mL (NOT DETECTED)
[2021-05-16 22:01] LABS: HCV Genotype LiPA 2
== END 2021-05-05 14:57 | disposition home or self-care (01) ==
LOC: HO.LAB 14:56
PROVIDERS: PCP Internal Medicine; Referring Provider Internal Medicine; Visit Provider Physician Assistant
DX: B19.20 Unspecified viral hepatitis C without hepatic coma (principal); B19.10 Unspecified viral hepatitis B without hepatic coma
CPT/HCPCS: 36415; 80053; 85025; 86706; 87340; 87389; 87522; 87902

== ENCOUNTER 2021-05-17 08:37 | Outpatient (REF) | payer OTHER, SELFPAY ==
[2021-05-18 13:01] LABS: CT PCR NOT DETECTED (Not Detect.); NG PCR NOT DETECTED (Not Detect.)
[2021-05-20 11:00] LABS: HPV mRNA E6/E7 rflx Not Detected (Not Detected)
== END 2021-05-17 08:38 | disposition home or self-care (01) ==
LOC: HO.LAB 08:37
PROVIDERS: PCP Internal Medicine; Visit Provider Obstetrics & Gynecology
DX: Z01.419 Encounter for gynecological examination (general) (routine) without abnormal findings (principal); Z11.51 Encounter for screening for human papillomavirus (HPV); B00.9 Herpesviral infection, unspecified
CPT/HCPCS: 87491; 87591; 87624; 88142

== ENCOUNTER 2021-08-09 18:40 | Emergency (ER) | payer OTHER, SELFPAY ==
[2021-08-09 18:42] VITALS: BP 116/74; PULSE 88; RESP 20; TEMP 36.8; O2SAT 99; BMI 22.7
== END 2021-08-09 20:55 | disposition left against medical advice (07) ==
LOC: HO.ED 20:51
PROVIDERS: Emergency Provider Emergency Medicine
DX: R06.02 Shortness of breath (principal)
CPT/HCPCS: 99281

== ENCOUNTER 2021-08-16 07:57 | Emergency (ER) | payer OTHER, SELFPAY ==
[2021-08-16 08:10] VITALS: BP 124/76; PULSE 90; RESP 18; TEMP 36.6; O2SAT 98; BMI 23.5
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
--- NOTE | 2021-08-16 09:09 | MHC.RECOVSUP ---
Recovery Support note: Patient is a 41 year old Kazakh speaking female who presented to [facility] after using IV cocaine. This short story writer met with patient to discuss substance use and recovery supports. Patient reports she is tired of using and wants to begin her recovery but she is finding herself unable to. Patient reports she has been in treatment so many times that she feels it would not be helpful at this time. Discussed [facility] and patient is familiar however is declining referrals at this time. Patient has completed IOP in the past and reports she goes to [facility]. Patient reports staying at the [facility] in [place] as helpful. Patient has a sponsor and reports her parents are helpful. Patient provided with contact information for this short story writer and a [facility] women's basketball coach as well as information on treatment facilities in the event that she would like to pursue treatment after discharge. Patient reports no questions or concerns at this time. Discussed case with ED physician.
[2021-08-16 09:18] VITALS: BP 112/67; PULSE 77; RESP 18; O2SAT 98
== END 2021-08-16 10:35 | disposition home or self-care (01) ==
PROVIDERS: Emergency Provider Emergency Medicine; PCP Internal Medicine
DX: F14.10 Cocaine abuse, uncomplicated (principal)
CPT/HCPCS: 99284

== ENCOUNTER 2021-10-21 02:57 | Emergency (ER) | payer OTHER, SELFPAY ==
[2021-10-21 03:03] VITALS: BP 148/90; PULSE 93; RESP 17; TEMP 36.8; O2SAT 96; BMI 21.1
[2021-10-21 06:00] VITALS: BP 112/66; PULSE 57; RESP 18; O2SAT 96
--- NOTE | 2021-10-21 06:32 | ED.GENADULT ---
HPI - General Adult General Chief complaint: General Medical Stated complaint: infection Time Seen by Provider: 10/21/21 05:24 Source: patient Mode of arrival: ambulatory History of Present Illness HPI narrative: 41-year-old female presents with complaints of fishy smelling vaginal discharge that she states has happened previously and she wishes to take oral medication to resolve her ?bacteria vaginosis?. She also states that she had a male visitor and afterwards states that she began itching everywhere with small spots on her arms trunk. She denies any fever, chills, nausea, vomiting, new cough or shortness of breath/chest pain. Related Data Previous Rx's Medication Instructions Recorded hydroxyzine HCl 50 mg tablet 50 mg PO BID PRN anxiety 30 days 01/03/21 #60 tabs ibuprofen 600 mg tablet 600 mg PO Q8H PRN pain #30 tabs 04/30/21 valacyclovir 500 mg tablet 500 mg PO BID PRN outbreak 3 days 05/17/21 #6 tabs aripiprazole 10 mg tablet 10 mg PO DAILY 90 days #90 tabs 09/08/21 gabapentin 600 mg tablet 600 mg PO BID 30 days #60 tabs 09/08/21 trazodone 150 mg tablet 150 mg PO BEDTIME 90 days #90 tabs 09/08/21 baclofen 10 mg tablet 10 mg PO TID 30 days #90 tabs 10/08/21 metronidazole 500 mg tablet 500 mg PO BID 7 days #14 tabs 10/21/21 permethrin 5 % topical cream 1 appl topical Q14D 2 doses #60 10/21/21 grams Allergies Allergy/AdvReac Type Severity Reaction Status Date / Time codeine [CODEINE] Allergy Intermediate RASH Verified 10/21/21 03:03 meperidine [Demerol] Allergy Intermediate rash Verified 10/21/21 03:03 Review of Systems Review of Systems: Pertinent positives and negatives as stated in HPI 10 point review of systems is otherwise negative. [facility] Past Medical History Source: nursing notes reviewed Medical History ASCUS of cervix with negative high risk HPV Bipolar depression Chest pain HCV (hepatitis C virus) Hepatitis C Neck pain Syphilis Surgical History History of History of benign breast tumor History of meniscectomy of left knee Family History Family History Father FH: prostate cancer Skin cancer Mother Hypertension Family/Other FH: mental illness Social History Social History Household Members: Children Household Members Other:: son Housing: Condominium Alcohol intake: former Patient Tobacco Use Status: Current everyday Tobacco user Tobacco use type: Cigarette Cigarettes Per Day: 10 e-Cigarette/Vaping Use: Never Used Second Hand Smoke Exposure: Yes Substance Use Type: Crack/Cocaine Advance Directives: No service: No Current occupational status: employed Current occupation: [employer] ED Vital Signs: Vital Signs - 24 hr 10/21/21 03:03 10/21/21 06:00 Temperature 98.3 F Pulse Rate 93 57 Respiratory Rate 17 18 Blood Pressure 148/90 H 112/66 Pulse Oximetry 96 96 Oxygen Delivery Method Room Air Room Air BMI result Body Mass Index 21.1 VITAL SIGNS: Reviewed. GENERAL: Well developed, well nourished, in no acute distress. HEAD: Normocephalic/atraumatic EYES: PERRLA, EOMI EARS: Ext canals without abnormality OROPHARYNX: no oral lesions noted, posterior pharynx clear LUNGS: Normal breath sounds. No adventitious sounds or accessory muscle use. SpO2<96> CARDIOVASCULAR: Regular rate and rhythm without noted murmurs ABDOMEN: Soft, non-tender, non-distended with bowel sounds. MUSCULOSKELETAL: No tenderness, deformities, or effusions noted on gross inspection. EXTREMITIES: No cyanosis, clubbing or edema. SKIN: Inspection of the skin reveals rest distributed along the bilateral upper extremities, back, along lower abdomen NEUROLOGIC: Alert and oriented x 4. Strength and sensation to light touch were grossly intact x 4. Course Course Course Narrative: 41-year-old female with history and clinical presentation consistent with likely scabies, she will be treated for her bacterial vaginosis as well as being provided with permethrin. Otherwise patient is discharged home in stable condition. Discharge Plan Discharge Clinical Impression: Bacterial vaginosis, Scabies Patient Disposition: Home, Self-Care Instructions: Bacterial Vaginosis (ED), Scabies (ED) Additional Instructions: 1. Please complete the medications that you have been prescribed for bacterial vaginosis. 2. Please use the medications that you have been prescribed, it is liquid, to treat suspected scabies. 3. Follow-up primary care provider in the next 1-2 days. Return to the ER for worsening symptoms. Prescriptions: New metronidazole 500 mg tablet 500 mg PO BID 7 Days Qty: 14 0RF permethrin 5 % cream 1 appl topical Q14D Qty: 60 0RF Rx Instructions: apply second treatment 14 days after first treatment if symptoms persist No Action hydroxyzine HCl 50 mg tablet 50 mg PO BID PRN (Reason: anxiety) 30 Days Qty: 60 6RF aripiprazole 10 mg tablet 10 mg PO DAILY 90 Days Qty: 90 1RF gabapentin 600 mg tablet 600 mg PO BID 30 Days Qty: 60 1RF trazodone 150 mg tablet 150 mg PO BEDTIME 90 Days Qty: 90 1RF baclofen 10 mg tablet 10 mg PO TID 30 Days Qty: 90 2RF ibuprofen 600 mg tablet 600 mg PO Q8H PRN (Reason: pain) Qty: 30 0RF valacyclovir 500 mg tablet 500 mg PO BID PRN (Reason: outbreak) 3 Days Qty: 6 5RF Referrals: Jenna Emerson MD [Primary Care Provider] -
== END 2021-10-21 07:50 | disposition home or self-care (01) ==
PROVIDERS: Emergency Provider Student in an Organized Health Care Education/Training Program; PCP Internal Medicine
DX: N76.0 Acute vaginitis (principal); B86 Scabies
CPT/HCPCS: 99282; 99283

== ENCOUNTER 2021-12-26 23:33 | Emergency (ER) | payer OTHER, SELFPAY | END 2021-12-27 00:20 | disposition left against medical advice (07) | PROVIDERS: Emergency Provider Emergency Medicine | DX: Z04.9 Encounter for examination and observation for unspecified reason (principal) ==

== ENCOUNTER 2022-01-20 00:15 | Inpatient (IN) | payer OTHER, SELFPAY ==
[2022-01-20 00:19] VITALS: BP 153/87; PULSE 118; RESP 20; TEMP 36.6; O2SAT 94; BMI 17.6
--- NOTE | 2022-01-20 00:49 | ED.PSYCH ---
HPI - Psych General Chief Complaint: Psychiatric Symptoms Stated Complaint: Requests psych eval Time Seen by Provider: 01/20/22 00:30 Mode of arrival: ambulatory Limitations: no limitations History of Present Illness HPI Narrative: 41-year-old female with a past pertinent medical history of anxiety and substance abuse including opiods/cocaine, presents today with a chief complaint of I have bugs all over me . Patient endorses suicidal ideation with a plan to shoot up on opioids. Denies homicidal ideation to myself endorses to nursing. Was last seen by a psychiatric provider in May however was lost to follow-up. Admits to cocaine and heroin use yesterday. Lives up [address] with with roommate. Has concerns of scabies today was treated in the past with permethrin. Admits to admits to auditory hallucinations appearing bugs at tactile hallucinations of feeling bugs. No visual hallucinations at this time. Denies fevers, chills, shortness of breath, nausea, vomiting, dysuria, hematuria, and flank pain, rash, sick contacts/ Related Data Previous Rx's Medication Instructions Recorded hydroxyzine HCl 50 mg tablet 50 mg PO BID PRN anxiety 30 days 01/03/21 #60 tabs ibuprofen 600 mg tablet 600 mg PO Q8H PRN pain #30 tabs 04/30/21 valacyclovir 500 mg tablet 500 mg PO BID PRN outbreak 3 days 05/17/21 #6 tabs aripiprazole 10 mg tablet 10 mg PO DAILY 90 days #90 tabs 09/08/21 gabapentin 600 mg tablet 600 mg PO BID 30 days #60 tabs 09/08/21 trazodone 150 mg tablet 150 mg PO BEDTIME 90 days #90 tabs 09/08/21 baclofen 10 mg tablet 10 mg PO TID 30 days #90 tabs 10/08/21 metronidazole 500 mg tablet 500 mg PO BID 7 days #14 tabs 10/21/21 paroxetine HCl 10 mg tablet 10 mg PO DAILY 90 days #90 tabs 11/30/21 permethrin 5 % topical cream 1 appl topical Q14D 2 doses #60 01/07/22 grams Allergies Allergy/AdvReac Type Severity Reaction Status Date / Time codeine [CODEINE] Allergy Intermediate RASH Verified 01/20/22 00:22 meperidine [Demerol] Allergy Intermediate rash Verified 01/20/22 00:22 Review of Systems Review of Systems: Constitutional : No Weight loss, No Fever, No Chills, No Fatigue, No Malaise ENT/Mouth : No sore throat, No Rhinorrhea Eyes: No Eye Pain, No Swelling, No Redness Cardiovascular : No Chest Pain, No SOB, No Dyspnea on Exertion, No Orthopnea, No Edema, No Palpitations Respiratory : No Cough, No Sputum, No Wheezing Gastrointestinal : No Nausea, No Vomiting, No Diarrhea, No Constipation, No abdominal Pain, No Hematochezia, No Melena Genitourinary : No Dysuria, No Urinary Frequency, No Hematuria, Musculoskeletal : No joint pain, No Myalgias, No Joint Swelling Skin : No Skin Lesions, No rash Neuro : No Weakness, No Numbness, No Dizziness, No Headache Psych : No Anxiety/Panic, + Depression, + HI, + SI, + tactile hallucinations All other systems reviewed and are negative Yes all other systems are reviewed and are negative PMFSH Past Medical History Attestation statement: The following information was validated with the patient. Source: old records reviewed and nursing notes reviewed Medical History ASCUS of cervix with negative high risk HPV Bipolar depression Chest pain HCV (hepatitis C virus) Hepatitis C Neck pain Syphilis Surgical History History of History of benign breast tumor History of meniscectomy of left knee Family History Family History Father FH: prostate cancer Skin cancer Mother Hypertension Family/Other FH: mental illness Social History Social History Household Members: Children Household Members Other:: son Housing: Condominium Alcohol intake: former Patient Tobacco Use Status: Current everyday Tobacco user Tobacco use type: Cigarette Cigarettes Per Day: 10 Smoked in Last 30 Days: Yes e-Cigarette/Vaping Use: Never Used Second Hand Smoke Exposure: Yes Use of substances other than those prescribed or required for medical reasons: Yes Substance Use Type: Crack/Cocaine and Heroin Last Used Substance: Days (ago) Advance Directives: No Patient : No service: No Current occupational status: employed Current occupation: [employer] Vital Signs: Vital Signs: Last Vital Signs Temp 97.8 F 01/20/22 00:19 Pulse 118 H 01/20/22 00:19 Resp 20 01/20/22 00:19 BP 153/87 H 01/20/22 00:19 Pulse Ox 94 01/20/22 00:19 O2 Del Method 01/20/22 00:19 BMI result Body Mass Index 17.6 Vital signs stable Appearance: Alert.? Oriented X3.? No acute distress.? Head: Normocephalic, atraumatic, no step-offs or deformities Eyes: Pupils equal, round and reactive to light.? Neck: Normal inspection.? Neck supple.? CVS: Normal heart rate and rhythm.? Pulses normal.? Respiratory: No respiratory distress.? Breath sounds normal.? Abdomen: Soft and nontender.? Skin: Skin warm and dry.? Normal skin color.? Normal skin turgor.?No signs of burros to suggest scabies, normal webspaces. Extremities: No lower extremity edema.? No calf ttp. 5/5 strength to bilateral upper and lower extremities Neuro: Oriented X 3.? No motor deficit.? No sensory deficit. CN 2-12 intact Course Reevaluation(s) Reevaluation #1: CBC with slight leukocytosis, chemistry with no acute electrolyte abnormalities requiring intervention, urine concerning for infection, will treat for UTI as patient does appear to have 4+ bacteria as well as leukocytosis. Urine toxicology positive for opiates, fentanyl, cocaine. Ethanol negative. COVID negative. Time: 01:42 Reevaluation #2: At this time patient will be placed into physician observation. At time observation was started patient common cooperative no acute distress. Will continue to monitor. Hemodynamically stable. Time: 01:43 Medications Administered Discontinued Medications Generic Name Dose Route Start Last Admin Trade Name Freq PRN Reason Stop Dose Admin Nitrofurantoin Macrocrystals 100 mg 01/20/22 01:20 01/20/22 01:32 Nitrofurantoin Monohyd/M-Cryst 100 Mg Capsule PO 01/20/22 01:21 100 mg ONCE ONE Administration MDM - Psych MDM Narrative Medical decision making narrative: 1250 41-year-old female presents with tactile hallucinations, suicidal ideation w/ plan and homicidal ideation. Reports polysubstance abuse Physical exam benign however, patient itching herself throughout my exam to her whole body Unlikley scabies likley drug induced puritits . Unlikely puritits from liver issues. Plan at this time medical clearance evaluation by the behavioral health team. Medical Records Attestation: I reviewed the patient's medical records. Lab Data Attestation: I reviewed the patient's lab results. Result diagrams: 01/20/22 00:59 01/20/22 00:59 Labs: Lab Results 01/20/22 01/20/22 01/20/22 Range/Units 00:46 00:46 00:46 WBC (4.8-10.8) X10*3/uL RBC (4.20-5.50) X10*6/uL Hgb (12.0-16.0) g/dl Hct (37.0-47.0) % MCV (80.0-98.0) fL MCH (27.0-33.0) pg MCHC (31.0-35.0) g/dl RDW (11.0-16.0) % Plt Count (160-400) X10*3/uL MPV (9.4-12.3) fL Immature Gran % (Auto) (0.0-0.4) % Neut % (Auto) (45-73) % Lymph % (Auto) (20-40) % [place] % (Auto) (2-11) % Eos % (Auto) (0-4) % Baso % (Auto) (0-2) % Lymph # (Auto) (1.2-4.9) X10*3/uL [place] # (Auto) (0.1-1.2) X10*3/uL Eos # (Auto) (0.0-0.4) X10*3/uL Baso # (Auto) (0.0-0.2) X10*3/uL Abs Immat Gran (auto) (0.00-0.03) X10*3/uL Absolute Neuts (auto) (2.0-8.3) x10*3/uL Absolute Nucleated RBC (0.0-0.012) X10*3/uL Nucleated RBC % (auto) (0.0-0.2) /100WBC Sodium (135-145) mmol/L Potassium (3.3-5.1) mmol/L Chloride (96-108) mmol/L Carbon Dioxide (22-29) mmol/L Anion Gap (12-20) BUN (9-16) mg/dL Creatinine (0.5-1.4) mg/dL Estim Creat Clear Calc Estimated GFR Random Glucose (60-115) mg/dL Calcium (8.4-10.2) mg/dL Magnesium (1.6-2.6) mg/dL Total Bilirubin (0.0-1.0) mg/dL AST (5-31) U/L ALT (0-31) U/L Alkaline Phosphatase (39-117) U/L Total Protein (6.5-8.0) g/dL Albumin (3.5-5.0) g/dL Urine Color Yellow Urine Appearance Cloudy Urine pH 6.0 (5.0-9.0) Ur Specific [place] 1.025 (1.005-1.025) Urine Protein Trace (Neg-Trace) mg/dL Urine Glucose (UA) Negative (Negative) mg/dL Urine Ketones Trace (Negative) mg/dL Urine Blood Negative (Negative) Urine Nitrite Negative (Negative) Ur Leukocyte Esterase Moderate (2+) H (Negative) Urine RBC >20 H (0-2) /HPF Urine WBC >50 H (0-5) /HPF Ur Squamous Epith Cells >20 (0-2) /HPF Urine Bacteria 4+ (None Seen) Hyaline Casts 0-2 (0-2) /LPF Urine Opiates Screen POSITIVE H (Not Detect) Urine Fentanyl Screen POSITIVE H (Not Detect) Ur Barbiturates Screen Not Detected (Not Detect) Ur Phencyclidine Scrn Not Detected (Not Detect) Ur Amphetamines Screen Not Detected (Not Detect) U Benzodiazepines Scrn Not Detected (Not Detect) Urine Cocaine Screen POSITIVE H (Not Detect) U Marijuana (THC) Screen Not Detected (Not Detect) Ethyl Alcohol mg/dL COVID-19 (JOSE) Negative (Negative) COVID-19 Clin Com See Note 01/20/22 01/20/22 Range/Units 00:59 00:59 WBC 14.8 H (4.8-10.8) X10*3/uL RBC 4.72 (4.20-5.50) X10*6/uL Hgb 13.6 (12.0-16.0) g/dl Hct 39.6 (37.0-47.0) % MCV 83.9 (80.0-98.0) fL MCH 28.8 (27.0-33.0) pg MCHC 34.3 (31.0-35.0) g/dl RDW 12.5 (11.0-16.0) % Plt Count 319 D (160-400) X10*3/uL MPV 9.7 (9.4-12.3) fL Immature Gran % (Auto) 0.4 (0.0-0.4) % Neut % (Auto) 70.0 (45-73) % Lymph % (Auto) 21.1 (20-40) % [place] % (Auto) 6.5 (2-11) % Eos % (Auto) 1.7 (0-4) % Baso % (Auto) 0.3 (0-2) % Lymph # (Auto) 3.1 (1.2-4.9) X10*3/uL [place] # (Auto) 1.0 (0.1-1.2) X10*3/uL Eos # (Auto) 0.3 (0.0-0.4) X10*3/uL Baso # (Auto) 0.0 (0.0-0.2) X10*3/uL Abs Immat Gran (auto) 0.06 H (0.00-0.03) X10*3/uL Absolute Neuts (auto) 10.4 H (2.0-8.3) x10*3/uL Absolute Nucleated RBC 0.000 (0.0-0.012) X10*3/uL Nucleated RBC % (auto) 0.0 (0.0-0.2) /100WBC Sodium 138 (135-145) mmol/L Potassium 4.1 (3.3-5.1) mmol/L Chloride 103 (96-108) mmol/L Carbon Dioxide 25 (22-29) mmol/L Anion Gap 14 (12-20) BUN 13 (9-16) mg/dL Creatinine 0.76 (0.5-1.4) mg/dL Estim Creat Clear Calc 79.6 Estimated GFR > 60 Random Glucose 119 H (60-115) mg/dL Calcium 9.4 (8.4-10.2) mg/dL Magnesium 2.0 (1.6-2.6) mg/dL Total Bilirubin 0.5 (0.0-1.0) mg/dL AST 28 (5-31) U/L ALT 39 H (0-31) U/L Alkaline Phosphatase 70 (39-117) U/L Total Protein 8.0 (6.5-8.0) g/dL Albumin 4.3 (3.5-5.0) g/dL Urine Color Urine Appearance Urine pH (5.0-9.0) Ur Specific [place] (1.005-1.025) Urine Protein (Neg-Trace) mg/dL Urine Glucose (UA) (Negative) mg/dL Urine Ketones (Negative) mg/dL Urine Blood (Negative) Urine Nitrite (Negative) Ur Leukocyte Esterase (Negative) Urine RBC (0-2) /HPF Urine WBC (0-5) /HPF Ur Squamous Epith Cells (0-2) /HPF Urine Bacteria (None Seen) Hyaline Casts (0-2) /LPF Urine Opiates Screen (Not Detect) Urine Fentanyl Screen (Not Detect) Ur Barbiturates Screen (Not Detect) Ur Phencyclidine Scrn (Not Detect) Ur Amphetamines Screen (Not Detect) U Benzodiazepines Scrn (Not Detect) Urine Cocaine Screen (Not Detect) U Marijuana (THC) Screen (Not Detect) Ethyl Alcohol < 10 mg/dL COVID-19 (JOSE) (Negative) COVID-19 Clin Com Critical Care Time Critical Care Time Critical Care Time: No Discharge Plan Discharge Clinical Impression: Suicidal ideation, Depression, Acute anxiety, Itch of skin, Tactile hallucination, Auditory hallucination, UTI (urinary tract infection) Patient Disposition: Still a Patient Additional Instructions: Please discharged on Macrobid for UTI. Prescriptions: No Action hydroxyzine HCl 50 mg tablet 50 mg PO BID PRN (Reason: anxiety) 30 Days Qty: 60 6RF aripiprazole 10 mg tablet 10 mg PO DAILY 90 Days Qty: 90 1RF gabapentin 600 mg tablet 600 mg PO BID 30 Days Qty: 60 1RF trazodone 150 mg tablet 150 mg PO BEDTIME 90 Days Qty: 90 1RF baclofen 10 mg tablet 10 mg PO TID 30 Days Qty: 90 2RF paroxetine HCl 10 mg tablet 10 mg PO DAILY 90 Days Qty: 90 0RF permethrin 5 % cream 1 appl topical Q14D Qty: 60 1RF Rx Instructions: apply second treatment 14 days after first treatment if symptoms persist ibuprofen 600 mg tablet 600 mg PO Q8H PRN (Reason: pain) Qty: 30 0RF metronidazole 500 mg tablet 500 mg PO BID 7 Days Qty: 14 0RF valacyclovir 500 mg tablet 500 mg PO BID PRN (Reason: outbreak) 3 Days Qty: 6 5RF
[2022-01-20 00:53] LABS: Appearance Urine Cloudy; Color Urine Yellow; Glucose Urine UA Negative (Negative); Leukocyte Esterase Urine Moderate (2+) (Negative); Nitrite Urine Negative (Negative); Specific Gravity - Urine 1.025 (1.005-1.025); UMIC TRIGGER UACC YES; Urine Blood Negative (Negative); Urine Ketones Trace mg/dL (Negative); Urine Protein Trace mg/dL (Neg-Trace)
[2022-01-20 01:00] LABS: Bacteria Urine 4+ (None Seen); Hyaline Casts Urine 0-2 /LPF (0-2); RBC Urine >20 /HPF (0-2); Squamous Epithelial Cell Urine >20 /HPF (0-2); UACC Culture Trigger YES; WBC Urine >50 /HPF (0-5)
--- OUTSIDE RECORDS SUMMARY | 2022-01-20 01:00 | XMS_ITS | Continuity of Care Document ---
:1980 Author Organization [facility] Inpatient Psychiatry Address [address] [place] [address]- Care Team Providers Name Role Phone Musa Nolan MD, Jenna Roper Primary Care Physician Encounter [facility] Date(s): 05/22/21 - 05/26/21 [facility] Inpatient Psychiatry [address] [place] [id number] Encounter Diagnosis Opiate overdose (Final) - 05/22/21 Bipolar disorder (Final) - 05/22/21 Substance abuse (Final) - 05/22/21 Discharge Disposition: A-D/C Home Attending Physician: Alethea Salinas MD Admitting Physician: Alethea Salinas MD Referring Physician: Not on Staff, Referring MD Allergies, Adverse Reactions, Alerts Substance Reaction Severity Status codeine Active Demerol HCl Active Seafood Active Immunizations Given and Recorded Vaccine Date Status Refusal Reason influenza virus vaccine, inactivated 01/29/14 Given Medications ARIPiprazole 15 mg oral tablet 15 mg, 1, tablet, By Mouth, Daily, # 30 tablet, Refills 0, Tot. Refills 0, Maintenance, 05/26/21 11:32:00 EDT, Route to Pharmacy Electronically, [facility]/pharmacy #[id number], Partial fill upon patient request ifthe prescription is for a schedule II opioid drug... Start Date: 05/26/21 Status: Orderedbaclofen 10 mg oral tablet 10 mg, Tablet, By Mouth, 05/26/21 9:00:00 EDT Start Date: 05/26/21 Stop Date: 05/26/21 Status: Completedbaclofen 10 mg oral tablet 10 mg, Tablet, By Mouth, 05/26/21 15:00:00 EDT Start Date: 05/26/21 Stop Date: 05/26/21 Status: Completedbaclofen 5 mg oral tablet 2 tablet = 10 mg, By Mouth, 3 times a day, # 180 tablet, 0 Refills, Maintenance, 05/22/21 20:10:00 EDT, Tablet, Partial fill upon patient request if the prescription is for a schedule II opioid drug. Start Date: 05/22/21 Status: OrderedbusPIRone 10 mg oral tablet 10 mg, 1, tablet, By Mouth, 3 times a day, # 90 tablet, Refills 0, Tot. Refills 0, Maintenance, 05/26/21 11:32:00 EDT, Route to Pharmacy Electronically, [facility]/pharmacy #[id number], Partial fill upon patient request if the prescription is for a schedule II opi... Start Date: 05/26/21 Status: Orderedgabapentin 300 mg oral capsule 600 mg, Capsule, By Mouth, 05/26/21 9:00:00 EDT Start Date: 05/26/21 Stop Date: 05/26/21 Status: Completedgabapentin 600 mg oral tablet 1 tablet = 600 mg, By Mouth, 2 times a day, 0 Refills, Maintenance, 08/21/19 8:26:00 EDT Start Date: 08/21/19 Status: OrderedtraZODone 150 mg oral tablet 1 tablet = 150 mg, By Mouth, Daily at bedtime, 0 Refills, Maintenance, 05/22/21 20:10:00 EDT, Partial fill upon patient request if the prescription is for a schedule II opioid drug. Start Date: 05/22/21 Status: Ordered Vital Signs Most recent to oldest 1 2 3 [Reference Range]: Height 172 cm 172 cm 172 cm (05/26/21 8:12 AM) (05/25/21 8:11 PM) (05/25/21 9:3 0 AM) Weight 68.9 kg 70.5 kg 70.5 kg (05/22/21 9:04 PM) (05/22/21 7:56 PM) (05/22/21 1:3 2 PM) Oxygen Saturation [94-100 %] 98 % 97 % 98 % (05/26/21 8:12 AM) (05/25/21 9:30 AM) (05/24/21 8:0 2 PM) Pulse Rate [55-90 bpm] 67 bpm 78 bpm 85 bpm (05/26/21 8:12 AM) (05/25/21 8:11 PM) (05/25/21 9:3 0 AM) Body Mass Index [18.5-24.99] 23.29 25.9 25. 9 (05/22/21 9:04 PM) *H* *H* (05/22/21 7:56 PM) (05/22/21 1:32 PM) Blood Pressure [90-138/55-84 108/52 mm Hg 129/70 mm Hg 114 /61 mm Hg mm Hg] (05/26/21 8:12 AM) (05/25/21 8:11 PM) (05/25/21 9:3 0 AM) Respiratory Rate [16-30 18 br/min 18 br/min 18 br/mi n br/min] (05/26/21 3:13 PM) (05/26/21 2:05 PM) (05/26/21 8:2 0 AM) Temperature [96.8-100.4 DegF] 96.8 DegF 97.3 DegF 97 .7 DegF (05/26/21 8:12 AM) (05/25/21 8:11 PM) (05/25/21 9:3 0 AM) Mode of Delivery (Oxygen) Room air Room air Room a ir (05/25/21 9:30 AM) (05/24/21 10:14 AM) (05/23/21 6: 28 PM) Blood pressure sites Arm, left Arm, left Arm, right (05/26/21 8:12 AM) (05/25/21 8:11 PM) (05/25/21 9:3 0 AM) Temperature Route Temporal Temporal Temporal (05/26/21 8:12 AM) (05/25/21 8:11 PM) (05/25/21 9:3 0 AM) Dry Weight 68.9 kg 70.5 kg 70.5 kg (05/22/21 9:04 PM) (05/22/21 7:56 PM) (05/22/21 1:3 2 PM) Weight Obtained Via Standing scale (05/22/21 9:04 PM) Social History Social History Type Response Smoking Status Unable to Obtain Sex
[2022-01-20 01:03] LABS: MANUAL DIFF FLAG NO
[2022-01-20 01:04] LABS: Basophils Percent Auto 0.3 % (0-2); Eosinophils Absolute Auto 0.3 X10*3/uL (0.0-0.4); Eosinophils Percent Auto 1.7 % (0-4); Hematocrit 39.6 % (37.0-47.0); Hemoglobin 13.6 g/dl (12.0-16.0); Imm Gran Abs Auto 0.06 X10*3/uL (0.00-0.03); Imm Gran Pct Auto 0.4 % (0.0-0.4); Lymphocytes Absolute Auto 3.1 X10*3/uL (1.2-4.9); Lymphocytes Percent Auto 21.1 % (20-40); Mean Corpuscular HGB Conc 34.3 g/dl (31.0-35.0); Mean Corpuscular Hemoglobin 28.8 pg (27.0-33.0); Mean Corpuscular Volume 83.9 fL (80.0-98.0); Mean Platelet Volume 9.7 fL (9.4-12.3); Monocytes Percent Auto 6.5 % (2-11); Neutrophils Absolute Auto 10.4 x10*3/uL (2.0-8.3); Platelet Count 319 X10*3/uL (160-400); Red Blood Count 4.72 X10*6/uL (4.20-5.50); Red Cell Distribution Width 12.5 % (11.0-16.0); White Blood Count 14.8 X10*3/uL (4.8-10.8)
[2022-01-20 01:04] LABS: Amphetamine Screen Urine Not Detected (Not Detect); Barbiturates, Urine Not Detected (Not Detect); Benzodiazepines Screen Urine Not Detected (Not Detect); Cannabinoid Screen Urine Not Detected (Not Detect); Cocaine Screen Urine POSITIVE (Not Detect); Fentanyl, urine POSITIVE (Not Detect); Opiate Screen Urine POSITIVE (Not Detect); Phencyclidine Screen Urine Not Detected (Not Detect)
[2022-01-20 01:05] LABS: COVID-19 Test Negative (Negative); IDNOW Serial# BCCEAD1C
[2022-01-20 01:26] LABS: Alanine Aminotransferase 39 U/L (0-31); Albumin Level 4.3 g/dL (3.5-5.0); Alkaline Phosphatase 70 U/L (39-117); Anion Gap 14 (12-20); Aspartate Amino Transferase 28 U/L (5-31); Bilirubin Total 0.5 mg/dL (0.0-1.0); Blood Urea Nitrogen 13 mg/dL (9-16); Calcium 9.4 mg/dL (8.4-10.2); Carbon Dioxide 25 mmol/L (22-29); Chloride 103 mmol/L (96-108); Creatinine Clr Calc Pharmacy 79.6; Estimated Glomerular Filt Rate > 60; Ethanol < 10 mg/dL; Glucose Random 119 mg/dL (60-115); Potassium 4.1 mmol/L (3.3-5.1); Sodium 138 mmol/L (135-145)
[2022-01-20] MEDS: Nitrofurantoin Monohyd/M-Cryst 100 MG CAPSULE PO ×3 (01:32→22:43)
[2022-01-20] MEDS: hydrOXYzine HCL 25 MG TABLET PO (01:55)
--- NOTE | 2022-01-20 02:51 | PC.NURSE ---
Smart sheet submitted.
--- NOTE | 2022-01-20 03:31 | PC.NURSE ---
Pt sleeping. Breaths are even and unlabored with equal chest rises. No apparent distress noted. Will continue to monitor.
--- NOTE | 2022-01-20 03:42 | PC.NURSE ---
[facility] at the bedside.
--- NOTE | 2022-01-20 04:09 | PC.NURSE ---
Med req completed.
--- NOTE | 2022-01-20 06:22 | PC.NURSE ---
Pt sleeping in no apparent distress. Breaths are even and unlabored. Will continue to monitor.
[2022-01-20 08:00] VITALS: RESP 16
--- NOTE | 2022-01-20 08:11 | PHA.MEDREC ---
Pharmacy Consult ? Medication Reconciliation Pharmacy has reviewed the medication reconciliation done by RN
[2022-01-20] MEDS: ARIPiprazole 10 MG TABLET PO (11:00)
[2022-01-20] MEDS: Baclofen 10 MG TABLET PO ×2 (11:00→22:44)
[2022-01-20] MEDS: Gabapentin 600 MG TABLET PO ×2 (11:00→22:43)
[2022-01-20] MEDS: PARoxetine HCL 10 MG TABLET PO (11:00)
[2022-01-20 11:01] VITALS: BP 127/72; PULSE 105; RESP 18
--- NOTE | 2022-01-20 13:01 | ECG_ITS ---
Test Reason : COCAINE USE Blood Pressure : / mmHG Vent. Rate : 103 BPM Atrial Rate : 103 BPM P-R Int : 134 ms QRS Dur : 088 ms QT Int : 320 ms P-R-T Axes : 075 098 077 degrees QTc Int : 419 ms Sinus tachycardia Right atrial enlargement Rightward axis RSR' or QR pattern in V1 suggests right ventricular conduction delay Nonspecific ST abnormality Abnormal ECG When compared with ECG of 14-APR-2017 11:08, Vent. rate has increased BY [address] now depressed in Inferior leads Referred By: Baudilio Del Castillo Electronically Signed By:MATTY RIDDLE MD
--- NOTE | 2022-01-20 14:17 | PC.NURSE ---
Report given to gianfranco HICKS on M3. Clothing washed on hot per request due to hx of itching in recent admission and sPMH of bedbug infestation and scabies. Pt verbalized consent
[2022-01-20 14:34] VITALS: BP 134/81; PULSE 123; RESP 18; TEMP 37.3; O2SAT 94
[2022-01-20 16:50] VITALS: BP 143/75; PULSE 94; TEMP 36.6; O2SAT 96
--- NOTE | 2022-01-20 17:18 | P.HPPS_ITS ---
HPI Chief Complaint: [facility] Medical History ASCUS of cervix with negative high risk HPV Bipolar depression Chest pain HCV (hepatitis C virus) Hepatitis C Neck pain Syphilis Surgical History History of History of benign breast tumor History of meniscectomy of left knee Diagnostics Vital Signs (24Hr): Vital Signs - 24 hr 01/20/22 00:19 01/20/22 08:00 01/20/22 11:01 Temperature 97.8 F Pulse Rate 118 H 105 H Respiratory Rate 20 16 18 Blood Pressure 153/87 H 127/72 Pulse Oximetry 94 Oxygen Delivery Method Room Air Room Air 01/20/22 14:34 01/20/22 16:50 Temperature 99.2 F 97.8 F Pulse Rate 123 H 94 Respiratory Rate 18 Blood Pressure 134/81 143/75 H Pulse Oximetry 94 96 Oxygen Delivery Method Room Air Room Air BMI result Body Mass Index 17.6 Labs Results: 01/20/22 00:59 01/20/22 00:59 Labs: Laboratory Results - last 48 hr 01/20/22 01/20/22 01/20/22 00:46 00:46 00:46 WBC RBC Hgb Hct MCV MCH MCHC RDW Plt Count MPV Immature Gran % (Auto) Neut % (Auto) Lymph % (Auto) [place] % (Auto) Eos % (Auto) Baso % (Auto) Lymph # (Auto) [place] # (Auto) Eos # (Auto) Baso # (Auto) Abs Immat Gran (auto) Absolute Neuts (auto) Absolute Nucleated RBC Nucleated RBC % (auto) Sodium Potassium Chloride Carbon Dioxide Anion Gap BUN Creatinine Estim Creat Clear Calc Estimated GFR Random Glucose Calcium Magnesium Total Bilirubin AST ALT Alkaline Phosphatase Total Protein Albumin Urine Color Yellow Urine Appearance Cloudy Urine pH 6.0 Ur Specific [place] 1.025 Urine Protein Trace Urine Glucose (UA) Negative Urine Ketones Trace Urine Blood Negative Urine Nitrite Negative Ur Leukocyte Esterase Moderate (2+) H Urine RBC >20 H Urine WBC >50 H Ur Squamous Epith Cells >20 Urine Bacteria 4+ Hyaline Casts 0-2 Urine Opiates Screen POSITIVE H Urine Fentanyl Screen POSITIVE H Ur Barbiturates Screen Not Detected Ur Phencyclidine Scrn Not Detected Ur Amphetamines Screen Not Detected U Benzodiazepines Scrn Not Detected Urine Cocaine Screen POSITIVE H U Marijuana (THC) Screen Not Detected Ethyl Alcohol COVID-19 (JOSE) Negative COVID-19 Clin Com See Note 01/20/22 01/20/22 00:59 00:59 WBC 14.8 H RBC 4.72 Hgb 13.6 Hct 39.6 MCV 83.9 MCH 28.8 MCHC 34.3 RDW 12.5 Plt Count 319 D MPV 9.7 Immature Gran % (Auto) 0.4 Neut % (Auto) 70.0 Lymph % (Auto) 21.1 [place] % (Auto) 6.5 Eos % (Auto) 1.7 Baso % (Auto) 0.3 Lymph # (Auto) 3.1 [place] # (Auto) 1.0 Eos # (Auto) 0.3 Baso # (Auto) 0.0 Abs Immat Gran (auto) 0.06 H Absolute Neuts (auto) 10.4 H Absolute Nucleated RBC 0.000 Nucleated RBC % (auto) 0.0 Sodium 138 Potassium 4.1 Chloride 103 Carbon Dioxide 25 Anion Gap 14 BUN 13 Creatinine 0.76 Estim Creat Clear Calc 79.6 Estimated GFR > 60 Random Glucose 119 H Calcium 9.4 Magnesium 2.0 Total Bilirubin 0.5 AST 28 ALT 39 H Alkaline Phosphatase 70 Total Protein 8.0 Albumin 4.3 Urine Color Urine Appearance Urine pH Ur Specific [place] Urine Protein Urine Glucose (UA) Urine Ketones Urine Blood Urine Nitrite Ur Leukocyte Esterase Urine RBC Urine WBC Ur Squamous Epith Cells Urine Bacteria Hyaline Casts Urine Opiates Screen Urine Fentanyl Screen Ur Barbiturates Screen Ur Phencyclidine Scrn Ur Amphetamines Screen U Benzodiazepines Scrn Urine Cocaine Screen U Marijuana (THC) Screen Ethyl Alcohol < 10 COVID-19 (JOSE) COVID-19 Clin Com Meds/Allergies Allergies Allergies Allergy/AdvReac Type Severity Reaction Status Date / Time codeine [CODEINE] Allergy Intermediate RASH Verified 01/20/22 00:22 meperidine [Demerol] Allergy Intermediate rash Verified 01/20/22 00:22
--- NOTE | 2022-01-20 18:30 | PC.NURSE ---
Patient declined flu vaccination on arrival, states she has already received.
--- NOTE | 2022-01-20 18:39 | PC.ADMIT ---
Jenaro was admitted on a CV from the [facility] ED Pod at 1645. On admission, patient appeared anxious, restless, and requested to be able to go to her room immediately. She was alert, oriented x3. Precipitant to admission, per patient, was a relapse since May 2021 on cocaine and heroin, per patient. She states she has a 7 year old son she would like to be able to see again. Per crisis report, patient was transported to the ED by her father 'secondary to tactile hallucinations, visual hallucinations, and suicidal ideation, plan, and intent to overdose on bags of heroin. ' On arrival to the unit, patient denied SI/HI, and denied hallucinations. When asked about tactile hallucinations patient stated I do have bugs. Bed bugs. F... ED don't believe me but I was just treated for scabies. Patient reports she smokes approximately $100-$200 of cocaine daily, and inhales a bag of heroin 4 x a week, to mitigate the effects of cocaine. Patient reports last use was just prior to admission. Medical hx includes Hep C, Syphilis, and scabies, for which she was treated with Permethrin two days ago. Patient has small scabbed open areas on arms bilaterally, unable to assess trunk or limbs. Almost immediately after admission, patient stated that she was unable to continue the admission assessment due to fatigue and requested to stop.
[2022-01-20 18:40] LABS: UPreg QC Valid YES; Urine Pregnancy NEGATIVE (NEGATIVE)
[2022-01-20 22:35] VITALS: BP 130/91; PULSE 96; RESP 18; TEMP 36.3; O2SAT 96
[2022-01-20] MEDS: traZODone HCL 50 MG TABLET 150 MG PO (22:43)
[2022-01-20] MEDS: hydrOXYzine HCL 50 MG TABLET PO (22:44)
[2022-01-21 09:07] LABS: Alanine Aminotransferase 37 U/L (0-31); Alkaline Phosphatase 68 U/L (39-117); Anion Gap 15 (12-20); Aspartate Amino Transferase 29 U/L (5-31); Bilirubin Total 0.4 mg/dL (0.0-1.0); Blood Urea Nitrogen 11 mg/dL (9-16); Calcium 9.2 mg/dL (8.4-10.2); Carbon Dioxide 22 mmol/L (22-29); Chloride 105 mmol/L (96-108); Cholesterol 161 mg/dL; Creatinine Clr Calc Pharmacy 76.6; Estimated Glomerular Filt Rate > 60; Glucose Fasting 224 mg/dL (60-99); HDL Cholesterol 53 mg/dL; LDL Cholesterol Calculated 95 mg/dl; Potassium 4.2 mmol/L (3.3-5.1); Sodium 138 mmol/L (135-145); Total Protein 7.6 g/dL (6.5-8.0); Triglycerides 69 mg/dL
[2022-01-21 09:27] LABS: Thyroid Stimulating Hormone 0.11 uIU/mL (0.32-4.0)
[2022-01-21 09:45] VITALS: BP 113/71; PULSE 132; RESP 20; TEMP 36.6; O2SAT 97
--- NOTE | 2022-01-21 10:33 | P.HPPS_ITS ---
HPI Date of Service: 01/21/22 Chief Complaint: si Sources of Information: patient interviewed, chart reviewed and crisis/core team assessment reviewed HPI Subjective Notes: Shrestha Warning, Conditional Voluntary and 3 Day Narrative: Ms. Esqueda is a 41 year-old woman with hx of substance use. Per [facility] records, pt was brought in by father as pt was reporting seeing bugs crawling on her skin and coming out of her hands. It appears that pt had also report suicidal ideation. It appears that Jenrao recently had scabies and was treated for it, but she has continued to report that she that she sees bugs which her parents report are not the case. In the ED, her utox was positive for opiods, fentanyl, cocaine. Pt was assessed both in the ED and on the unit, no signs of burrows or rash. On the unit, pt presents as withdrawn, guarded and somnolent and at times difficult to engage in meaningful or longer conversations as her attention is poor. Pt reports that she was seeing bugs coming out of her hands (no visible signs of rash on palms to indicate this). Pt also reports she was suicidal but no anymore. However, not able to explain what is different today that she is no longer suicidal. Pt appears internally preoccupied. When asked about substance use, pt denies opioid use, however, was positive for both opioids and fentanyl. Pt did report to RN that she uses opioids to help calm down from using cocaine. Interview is limited as pt goes back to sleep and would not wake up for few more minutes to complete interview. Past Psychiatric History: Inpatient:none OP: none Past trials: carol rosas Medical Evaluation Reviewed: Yes [facility] Medical History ASCUS of cervix with negative high risk HPV Bipolar depression Chest pain HCV (hepatitis C virus) Hepatitis C Neck pain Syphilis Surgical History History of History of benign breast tumor History of meniscectomy of left knee Family History: depression Social History: pt lives with roommate and housing is consider stable. She had son removed by DCF, now with father and apparently pt has not seen in 4 years. Substance History: cocaine: unclear age of onset, use daily denies opioid use but positive for both fentanyl and opioids. Trauma History: unknown Diagnostics Vital Signs (24Hr): Vital Signs - 24 hr 01/20/22 14:34 01/20/22 16:50 01/20/22 22:35 Temperature 99.2 F 97.8 F 97.3 F Pulse Rate 123 H 94 96 Respiratory Rate 18 18 Blood Pressure 134/81 143/75 H 130/91 H Pulse Oximetry 94 96 96 Oxygen Delivery Method Room Air Room Air Room Air 01/21/22 09:45 01/21/22 12:49 Temperature 97.8 F Pulse Rate 132 H 110 H Respiratory Rate 20 20 Blood Pressure 113/71 Pulse Oximetry 97 96 Oxygen Delivery Method Room Air Room Air BMI result Body Mass Index 17.6 Labs Results: 01/20/22 00:59 01/21/22 08:19 Labs: Laboratory Results - last 48 hr 01/20/22 01/20/22 01/20/22 00:46 00:46 00:46 WBC RBC Hgb Hct MCV MCH MCHC RDW Plt Count MPV Immature Gran % (Auto) Neut % (Auto) Lymph % (Auto) [place] % (Auto) Eos % (Auto) Baso % (Auto) Lymph # (Auto) [place] # (Auto) Eos # (Auto) Baso # (Auto) Abs Immat Gran (auto) Absolute Neuts (auto) Absolute Nucleated RBC Nucleated RBC % (auto) Sodium Potassium Chloride Carbon Dioxide Anion Gap BUN Creatinine Estim Creat Clear Calc Estimated GFR Random Glucose Fasting Glucose Estimat Average Glucose Hemoglobin A1c % Calcium Magnesium Total Bilirubin AST ALT Alkaline Phosphatase Total Protein Albumin Triglycerides Cholesterol LDL Cholesterol, Calc HDL Cholesterol Vitamin B12 TSH Urine Color Yellow Urine Appearance Cloudy Urine pH 6.0 Ur Specific [place] 1.025 Urine Protein Trace Urine Glucose (UA) Negative Urine Ketones Trace Urine Blood Negative Urine Nitrite Negative Ur Leukocyte Esterase Moderate (2+) H Urine RBC >20 H Urine WBC >50 H Ur Squamous Epith Cells >20 Urine Bacteria 4+ Hyaline Casts 0-2 Urine Test Urine Opiates Screen POSITIVE H Urine Fentanyl Screen POSITIVE H Ur Barbiturates Screen Not Detected Ur Phencyclidine Scrn Not Detected Ur Amphetamines Screen Not Detected U Benzodiazepines Scrn Not Detected Urine Cocaine Screen POSITIVE H U Marijuana (THC) Screen Not Detected Ethyl Alcohol COVID-19 (JOSE) Negative COVID-19 Clin Com See Note 01/20/22 01/20/22 01/20/22 00:46 00:59 00:59 WBC 14.8 H RBC 4.72 Hgb 13.6 Hct 39.6 MCV 83.9 MCH 28.8 MCHC 34.3 RDW 12.5 Plt Count 319 D MPV 9.7 Immature Gran % (Auto) 0.4 Neut % (Auto) 70.0 Lymph % (Auto) 21.1 [place] % (Auto) 6.5 Eos % (Auto) 1.7 Baso % (Auto) 0.3 Lymph # (Auto) 3.1 [place] # (Auto) 1.0 Eos # (Auto) 0.3 Baso # (Auto) 0.0 Abs Immat Gran (auto) 0.06 H Absolute Neuts (auto) 10.4 H Absolute Nucleated RBC 0.000 Nucleated RBC % (auto) 0.0 Sodium 138 Potassium 4.1 Chloride 103 Carbon Dioxide 25 Anion Gap 14 BUN 13 Creatinine 0.76 Estim Creat Clear Calc 79.6 Estimated GFR > 60 Random Glucose 119 H Fasting Glucose Estimat Average Glucose Hemoglobin A1c % Calcium 9.4 Magnesium 2.0 Total Bilirubin 0.5 AST 28 ALT 39 H Alkaline Phosphatase 70 Total Protein 8.0 Albumin 4.3 Triglycerides Cholesterol LDL Cholesterol, Calc HDL Cholesterol Vitamin B12 TSH Urine Color Urine Appearance Urine pH Ur Specific [place] Urine Protein Urine Glucose (UA) Urine Ketones Urine Blood Urine Nitrite Ur Leukocyte Esterase Urine RBC Urine WBC Ur Squamous Epith Cells Urine Bacteria Hyaline Casts Urine Test NEGATIVE Urine Opiates Screen Urine Fentanyl Screen Ur Barbiturates Screen Ur Phencyclidine Scrn Ur Amphetamines Screen U Benzodiazepines Scrn Urine Cocaine Screen U Marijuana (THC) Screen Ethyl Alcohol < 10 COVID-19 (JOSE) COVID-19 Clin Com 01/21/22 01/21/22 01/21/22 08:19 08:19 08:19 WBC RBC Hgb Hct MCV MCH MCHC RDW Plt Count MPV Immature Gran % (Auto) Neut % (Auto) Lymph % (Auto) [place] % (Auto) Eos % (Auto) Baso % (Auto) Lymph # (Auto) [place] # (Auto) Eos # (Auto) Baso # (Auto) Abs Immat Gran (auto) Absolute Neuts (auto) Absolute Nucleated RBC Nucleated RBC % (auto) Sodium 138 Potassium 4.2 Chloride 105 Carbon Dioxide 22 Anion Gap 15 BUN 11 Creatinine 0.79 Estim Creat Clear Calc 76.6 Estimated GFR > 60 Random Glucose Fasting Glucose 224 H Estimat Average Glucose 111 Hemoglobin A1c % 5.5 Calcium 9.2 Magnesium Total Bilirubin 0.4 AST 29 ALT 37 H Alkaline Phosphatase 68 Total Protein 7.6 Albumin 3.8 Triglycerides 69 Cholesterol 161 LDL Cholesterol, Calc 95 HDL Cholesterol 53 Vitamin B12 894 TSH 0.11 L Urine Color Urine Appearance Urine pH Ur Specific [place] Urine Protein Urine Glucose (UA) Urine Ketones Urine Blood Urine Nitrite Ur Leukocyte Esterase Urine RBC Urine WBC Ur Squamous Epith Cells Urine Bacteria Hyaline Casts Urine Test Urine Opiates Screen Urine Fentanyl Screen Ur Barbiturates Screen Ur Phencyclidine Scrn Ur Amphetamines Screen U Benzodiazepines Scrn Urine Cocaine Screen U Marijuana (THC) Screen Ethyl Alcohol COVID-19 (JOSE) COVID-19 Clin Com Meds/Allergies Allergies Allergies Allergy/AdvReac Type Severity Reaction Status Date / Time codeine [CODEINE] Allergy Intermediate RASH Verified 01/20/22 00:22 meperidine [Demerol] Allergy Intermediate rash Verified 01/20/22 00:22 seafood AdvReac Unknown Verified 01/20/22 19:25 Mental Status Exam Mental Status Exam Narrative: appearance: very malnourish, thin, very poor hygiene, matted hair, in NAD behavior: guarded, indifferent, difficult to engage, although not hostile Psychomotor: no retardation or agitation noted Speech: mumbles at times, single words, minimally spontaneous TP: disorganized TC: feeling tired, wanting to sleep Mood: unable to assessed Affect: somnolent SI: denies HI: denies VH/AH: reports less VH of bugs, although still reports that we can't see them but she can Delusions: guarded no overt delusional content reported Insight/judgment: impaired x 2. memory/cog: alert, oriented to place, vaguely to situation. Assessment & Plan Assessment & Plan (1) Substance-induced psychotic disorder with hallucinations: Status: Acute Code(s): F19.951 - Other psychoactive substance use, unspecified with psychoactive substance-induced psychotic disorder with hallucinations (2) Cocaine use disorder, moderate, dependence: Status: Acute Code(s): F14.20 - Cocaine dependence, uncomplicated (3) Opioid use disorder, moderate, dependence: Status: Acute Code(s): F11.20 - Opioid dependence, uncomplicated Plan Ms. Esqueda is a 41 year-old woman with hx of cocaine and opioid use, who was brought in by father due to pt presenting with tactile and visual hallucination, feeling and seeing bugs coming out of hands. Pt did recently had scabies but she is currently not showing any signs of burrows and skin check we re completed both in the ED and on the unit. Pt appears as guarded, someone confused and speech disorganized. She reported also having suicidal ideation prior to coming to the unit which she now denies but unable to explain what is different today. She denies opioid use when asked, as we offer her comfort meds for opioid withdrawal and utox positive for opioids, fentanyl and cocaine. We discussed risks, benefits and alternative treatment options. will d/c abilify (mostly as pt reports RLS, supect may be more prone to akathisia with this medication). will start low dose of risperidone 0.5mg po BID. PLAN 1. Admit to M3, CV, 3 day notice, 15 minutes checks for safety 2. opioid withdrawal comfort meds order 3. start risperidone 0.5mg po BID 4. Obtain collateral information 5. Aftercare planning. Patient educated on: diagnosis, medication risk/benefits and substance abuse Informed Consent: understands Reason for continued inpatient stay Substantial Risk for: harm to self and inability to function
[2022-01-21] MEDS: Baclofen 10 MG TABLET PO ×3 (10:42→20:37)
[2022-01-21] MEDS: Gabapentin 600 MG TABLET PO ×2 (10:42→20:38)
[2022-01-21] MEDS: Nitrofurantoin Monohyd/M-Cryst 100 MG CAPSULE PO ×2 (10:42→20:37)
[2022-01-21] MEDS: ARIPiprazole 10 MG TABLET PO (10:43)
[2022-01-21 10:44] LABS: Estimated Average Glucose 111 mg/dL; Hemoglobin A1c % 5.5 %
[2022-01-21 11:15] LABS: Albumin Level 3.8 g/dL (3.5-5.0)
[2022-01-21 11:39] LABS: Vitamin B12 894 pg/mL (200-900)
[2022-01-21 12:49] VITALS: PULSE 110; RESP 20; O2SAT 96
--- NOTE | 2022-01-21 16:59 | PC.NURSE ---
Late entry: Provider notified of patient request for nicotine patch.
[2022-01-21 20:30] VITALS: BP 139/68; PULSE 100; RESP 18; TEMP 36.9; O2SAT 95
[2022-01-21] MEDS: traZODone HCL 50 MG TABLET 150 MG PO (20:37)
--- NOTE | 2022-01-22 00:52 | HO.PSYCHPN ---
Subjective Subjective Date of Service: 01/22/22 Reason For Visit: si Interim History: Discussed with team, pt has been isolative, depressed, anxious, received second permethrin treatment, complains of cough. Ordered jarrettitussen. Spoke with pt. Says she has no itching at all. Does not want risperdal due to hx of hyperprolactinemia. Says she wants to be back on buspar and abilify. Mood is depressed. Sleep is good, however sleep all day. Says she is worried about having bugs all over her house but denies having bed bugs, im not getting bit. Medication Compliance: Yes Side effects from medications: No Attending Groups: No Review of Systems Acute medical concerns: No Medical Review of Systems: unchanged Mental Status Exam Mental Status Exam Narrative: appearance: very malnourish, thin, very poor hygiene, matted hair, in NAD behavior: guarded, indifferent, difficult to engage, although not hostile Psychomotor: no retardation or agitation noted Speech: mumbles at times, single words, minimally spontaneous TP: disorganized TC: feeling tired, wanting to sleep Mood: unable to assessed Affect: somnolent SI: denies HI: denies VH/AH: reports less VH of bugs, although still reports that we can't see them but she can Delusions: guarded no overt delusional content reported Insight/judgment: impaired x 2. memory/cog: alert, oriented to place, vaguely to situation. Diagnostics Vital Signs (24Hr): Vital Signs - 24 hr 01/21/22 09:45 01/21/22 12:49 01/21/22 20:30 Temperature 97.8 F 98.4 F Pulse Rate 132 H 110 H 100 Respiratory Rate 20 20 18 Blood Pressure 113/71 139/68 Pulse Oximetry 97 96 95 Oxygen Delivery Method Room Air Room Air Room Air BMI result Body Mass Index 17.6 Labs Results: 01/20/22 00:59 01/21/22 08:19 Labs: Laboratory Results - last 48 hr 01/20/22 01/20/22 01/20/22 00:46 00:46 00:46 WBC RBC Hgb Hct MCV MCH MCHC RDW Plt Count MPV Immature Gran % (Auto) Neut % (Auto) Lymph % (Auto) [place] % (Auto) Eos % (Auto) Baso % (Auto) Lymph # (Auto) [place] # (Auto) Eos # (Auto) Baso # (Auto) Abs Immat Gran (auto) Absolute Neuts (auto) Absolute Nucleated RBC Nucleated RBC % (auto) Sodium Potassium Chloride Carbon Dioxide Anion Gap BUN Creatinine Estim Creat Clear Calc Estimated GFR Random Glucose Fasting Glucose Estimat Average Glucose Hemoglobin A1c % Calcium Magnesium Total Bilirubin AST ALT Alkaline Phosphatase Total Protein Albumin Triglycerides Cholesterol LDL Cholesterol, Calc HDL Cholesterol Vitamin B12 TSH Urine Color Yellow Urine Appearance Cloudy Urine pH 6.0 Ur Specific [place] 1.025 Urine Protein Trace Urine Glucose (UA) Negative Urine Ketones Trace Urine Blood Negative Urine Nitrite Negative Ur Leukocyte Esterase Moderate (2+) H Urine RBC >20 H Urine WBC >50 H Ur Squamous Epith Cells >20 Urine Bacteria 4+ Hyaline Casts 0-2 Urine Test Urine Opiates Screen POSITIVE H Urine Fentanyl Screen POSITIVE H Ur Barbiturates Screen Not Detected Ur Phencyclidine Scrn Not Detected Ur Amphetamines Screen Not Detected U Benzodiazepines Scrn Not Detected Urine Cocaine Screen POSITIVE H U Marijuana (THC) Screen Not Detected Ethyl Alcohol COVID-19 (JOSE) Negative COVID-19 Clin Com See Note 01/20/22 01/20/22 01/20/22 00:46 00:59 00:59 WBC 14.8 H RBC 4.72 Hgb 13.6 Hct 39.6 MCV 83.9 MCH 28.8 MCHC 34.3 RDW 12.5 Plt Count 319 D MPV 9.7 Immature Gran % (Auto) 0.4 Neut % (Auto) 70.0 Lymph % (Auto) 21.1 [place] % (Auto) 6.5 Eos % (Auto) 1.7 Baso % (Auto) 0.3 Lymph # (Auto) 3.1 [place] # (Auto) 1.0 Eos # (Auto) 0.3 Baso # (Auto) 0.0 Abs Immat Gran (auto) 0.06 H Absolute Neuts (auto) 10.4 H Absolute Nucleated RBC 0.000 Nucleated RBC % (auto) 0.0 Sodium 138 Potassium 4.1 Chloride 103 Carbon Dioxide 25 Anion Gap 14 BUN 13 Creatinine 0.76 Estim Creat Clear Calc 79.6 Estimated GFR > 60 Random Glucose 119 H Fasting Glucose Estimat Average Glucose Hemoglobin A1c % Calcium 9.4 Magnesium 2.0 Total Bilirubin 0.5 AST 28 ALT 39 H Alkaline Phosphatase 70 Total Protein 8.0 Albumin 4.3 Triglycerides Cholesterol LDL Cholesterol, Calc HDL Cholesterol Vitamin B12 TSH Urine Color Urine Appearance Urine pH Ur Specific [place] Urine Protein Urine Glucose (UA) Urine Ketones Urine Blood Urine Nitrite Ur Leukocyte Esterase Urine RBC Urine WBC Ur Squamous Epith Cells Urine Bacteria Hyaline Casts Urine Test NEGATIVE Urine Opiates Screen Urine Fentanyl Screen Ur Barbiturates Screen Ur Phencyclidine Scrn Ur Amphetamines Screen U Benzodiazepines Scrn Urine Cocaine Screen U Marijuana (THC) Screen Ethyl Alcohol < 10 COVID-19 (JOSE) COVID-19 [employer] Com 01/21/22 01/21/22 01/21/22 08:19 08:19 08:19 WBC RBC Hgb Hct MCV MCH MCHC RDW Plt Count MPV Immature Gran % (Auto) Neut % (Auto) Lymph % (Auto) [place] % (Auto) Eos % (Auto) Baso % (Auto) Lymph # (Auto) [place] # (Auto) Eos # (Auto) Baso # (Auto) Abs Immat Gran (auto) Absolute Neuts (auto) Absolute Nucleated RBC Nucleated RBC % (auto) Sodium 138 Potassium 4.2 Chloride 105 Carbon Dioxide 22 Anion Gap 15 BUN 11 Creatinine 0.79 Estim Creat Clear Calc 76.6 Estimated GFR > 60 Random Glucose Fasting Glucose 224 H Estimat Average Glucose 111 Hemoglobin A1c % 5.5 Calcium 9.2 Magnesium Total Bilirubin 0.4 AST 29 ALT 37 H Alkaline Phosphatase 68 Total Protein 7.6 Albumin 3.8 Triglycerides 69 Cholesterol 161 LDL Cholesterol, Calc 95 HDL Cholesterol 53 Vitamin B12 894 TSH 0.11 L Urine Color Urine Appearance Urine pH Ur Specific [place] Urine Protein Urine Glucose (UA) Urine Ketones Urine Blood Urine Nitrite Ur Leukocyte Esterase Urine RBC Urine WBC Ur Squamous Epith Cells Urine Bacteria Hyaline Casts Urine Test Urine Opiates Screen Urine Fentanyl Screen Ur Barbiturates Screen Ur Phencyclidine Scrn Ur Amphetamines Screen U Benzodiazepines Scrn Urine Cocaine Screen U Marijuana (THC) Screen Ethyl Alcohol COVID-19 (JOSE) COVID-19 Clin Com Medications Medications Current Medications Acetaminophen (Acetaminophen 325 Mg Tablet) 650 mg PO Q6H PRN PRN Reason: Headache/Pain Mild Scale (1-3) Al Hydroxide/Mg Hydroxide (Magnesium Hydrox/Alum Hydrox 30 Ml Oral.Susp) 30 ml PO Q6H PRN PRN Reason: Heartburn/Nausea Aripiprazole (Aripiprazole 10 Mg Tablet) 10 mg PO DAILY NANCY Last Admin: 01/21/22 10:43 Dose: 10 mg Baclofen (Baclofen 10 Mg Tablet) 10 mg PO TID [facility] Last Admin: 01/21/22 20:37 Dose: 10 mg Gabapentin (Gabapentin 600 Mg Tablet) 600 mg PO BID [facility] Last Admin: 01/21/22 20:38 Dose: 600 mg Hydroxyzine HCl (Hydroxyzine Hcl 50 Mg Tablet) 50 mg PO BID PRN PRN Reason: anxiety Last Admin: 01/20/22 22:44 Dose: 50 mg Hydroxyzine HCl (Hydroxyzine Hcl 25 Mg Tablet) 25 mg PO Q6H PRN PRN Reason: Anxiety Magnesium Hydroxide (Milk Of Magnesia 30 Ml Oral.Susp) 30 ml PO DAILY PRN PRN Reason: Constipation Nicotine (Nicotine 21 Mg Patch.Td24) 21 mg TRANSDERMA DAILY [facility] Nitrofurantoin Macrocrystals (Nitrofurantoin Monohyd/M-Cryst 100 Mg Capsule) 100 mg PO BID [facility] Last Admin: 01/21/22 20:37 Dose: 100 mg Paroxetine HCl (Paroxetine Hcl 10 Mg Tablet) 10 mg PO DAILY [facility] Last Admin: 01/21/22 13:54 Dose: Not Given Permethrin (Permethrin 5 % Cream 60 Gm Tube) 1 appl TOPICAL ONCE ONE Stop: 01/22/22 07:56 Pharmacy Consult (Consult Rx Perform Med Rec) 1 each MISCELLANE ONCE PRN PRN Reason: Consult order Trazodone HCl (Trazodone Hcl 50 Mg Tablet) 150 mg PO BEDTIME [facility] Last Admin: 01/21/22 20:37 Dose: 150 mg Trazodone HCl (Trazodone Hcl 50 Mg Tablet) 50 mg PO BEDTIME PRN PRN Reason: Insomnia Valacyclovir HCl (Valacyclovir Hcl 500 Mg Tablet) 500 mg PO BID PRN PRN Reason: outbreak Allergies Allergies Allergy/AdvReac Type Severity Reaction Status Date / Time codeine [CODEINE] Allergy Intermediate RASH Verified 01/20/22 00:22 meperidine [Demerol] Allergy Intermediate rash Verified 01/20/22 00:22 seafood AdvReac Unknown Verified 01/20/22 19:25 Assessment & Plan Assessment & Plan (1) Opioid use disorder, moderate, dependence: Status: Acute Code(s): F11.20 - Opioid dependence, uncomplicated (2) Cocaine use disorder, moderate, dependence: Status: Acute Code(s): F14.20 - Cocaine dependence, uncomplicated (3) Substance-induced psychotic disorder with hallucinations: Status: Acute Code(s): F19.951 - Other psychoactive substance use, unspecified with psychoactive substance-induced psychotic disorder with hallucinations Plan Ms. Esqueda is a 41 year-old woman with hx of cocaine and opioid use, who was brought in by father due to pt presenting with tactile and visual hallucination, feeling and seeing bugs coming out of hands. Pt did recently had scabies but she is currently not showing any signs of burrows and skin check we re completed both in the ED and on the unit. Pt appears as guarded, someone confused and speech disorganized. She reported also having suicidal ideation prior to coming to the unit which she now denies but unable to explain what is different today. She denies opioid use when asked, as we offer her comfort meds for opioid withdrawal and utox positive for opioids, fentanyl and cocaine. We discussed risks, benefits and alternative treatment options. will d/c abilify (mostly as pt reports RLS, supect may be more prone to akathisia with this medication). will start low dose of risperidone 0.5mg po BID. PLAN 1. Admit to M3, CV, 3 day notice, 15 minutes checks for safety 2. opioid withdrawal comfort meds order 3. start risperidone 0.5mg po BID 4. Obtain collateral information 5. Aftercare planning. 01/22: D/C risperdal due to hx of SE i.e. galactorrhea, will re-start abilify 10 mg AM for mood stability and buspar 10 mg TID for anxiety I spent minutes with the patient and/or on the patient floor today, greater than?50% of which was spent counseling/coordinating care. Patient educated on: medication risk/benefits and therapeutic strategies Reason for contiued inpatient stay Substantial Risk for: harm to self, rapid decompensation and med/psych decompensation
[2022-01-22] MEDS: Baclofen 10 MG TABLET PO ×3 (09:19→20:51)
[2022-01-22] MEDS: Nitrofurantoin Monohyd/M-Cryst 100 MG CAPSULE PO ×2 (09:19→20:51)
[2022-01-22] MEDS: Gabapentin 600 MG TABLET PO ×2 (09:19→20:51)
[2022-01-22] MEDS: Permethrin 5 % Cream 60 GM TUBE 1 APPL TOPICAL (09:36)
[2022-01-22] MEDS: Nicotine 21 MG PATCH.TD24 TRANSDERMA (10:21)
[2022-01-22 12:05] VITALS: BP 127/91; PULSE 106; RESP 16; TEMP 37.1; O2SAT 98
[2022-01-22] MEDS: busPIRone HCl 10 MG TABLET PO ×2 (14:42→20:51)
[2022-01-22] MEDS: Throat Lozenge, Medicated LOZENGE 1 LOZENGE MUCOUS MEM ×2 (14:58→20:56)
[2022-01-22] MEDS: guaiFENesin DM 100/10/5 ML 5 ML SYRUP PO ×2 (14:58→20:57)
[2022-01-22 20:10] VITALS: BP 132/81; PULSE 101; RESP 16; TEMP 36.7; O2SAT 97
[2022-01-22] MEDS: traZODone HCL 50 MG TABLET 150 MG PO (20:51)
[2022-01-22] MEDS: cloNIDine HCL 0.1 MG TABLET PO (20:55)
--- NOTE | 2022-01-22 23:17 | PC.NURSE ---
Nurse attempted to wake patient from sleep to wash off permethrin cream. Patient sound asleep and unable to wake at this time. Nurse will attempt again.
--- NOTE | 2022-01-23 01:50 | P.PNPSI_ITS ---
Subjective Subjective Date of Service: 01/23/22 Reason For Visit: si Interim History: Discussed with team. Pt says she is good. Wants the parasite pill for when she discharges to make sure everything is gone. Says she wants to leave tomorrow recommended she speak with her SW and provider. Depression is fine. Sleep is good. Reports benefit on her meds, no SE, says I was really manic when i came in. She complains of sinus pain. Feels safe. Mental Status Exam Mental Status Exam Narrative: appearance: very malnourish, thin, very poor hygiene, matted hair, in NAD behavior: guarded, indifferent, difficult to engage, although not hostile Psychomotor: no retardation or agitation noted Speech: mumbles at times, single words, minimally spontaneous TP: disorganized TC: feeling tired, wanting to sleep Mood: unable to assessed Affect: somnolent SI: denies HI: denies VH/AH: reports less VH of bugs, although still reports that we can't see them but she can Delusions: guarded no overt delusional content reported Insight/judgment: impaired x 2. memory/cog: alert, oriented to place, vaguely to situation. Diagnostics Vital Signs (24Hr): Vital Signs - 24 hr 01/22/22 12:05 01/22/22 20:10 Temperature 98.7 F 98.1 F Pulse Rate 106 H 101 H Respiratory Rate 16 16 Blood Pressure 127/91 H 132/81 Pulse Oximetry 98 97 Oxygen Delivery Method Room Air Room Air BMI result Body Mass Index 17.6 Labs Results: 01/20/22 00:59 01/21/22 08:19 Labs: Laboratory Results - last 48 hr 01/21/22 01/21/22 01/21/22 08:19 08:19 08:19 Sodium 138 Potassium 4.2 Chloride 105 Carbon Dioxide 22 Anion Gap 15 BUN 11 Creatinine 0.79 Estim Creat Clear Calc 76.6 Estimated GFR > 60 Fasting Glucose 224 H Estimat Average Glucose 111 Hemoglobin A1c % 5.5 Calcium 9.2 Total Bilirubin 0.4 AST 29 ALT 37 H Alkaline Phosphatase 68 Total Protein 7.6 Albumin 3.8 Triglycerides 69 Cholesterol 161 LDL Cholesterol, Calc 95 HDL Cholesterol 53 Vitamin B12 894 TSH 0.11 L Medications Medications Current Medications Acetaminophen (Acetaminophen 325 Mg Tablet) 650 mg PO Q6H PRN PRN Reason: Headache/Pain Mild Scale (1-3) Al Hydroxide/Mg Hydroxide (Magnesium Hydrox/Alum Hydrox 30 Ml Oral.Susp) 30 ml PO Q6H PRN PRN Reason: Heartburn/Nausea Aripiprazole (Aripiprazole 10 Mg Tablet) 10 mg PO DAILY [facility] Baclofen (Baclofen 10 Mg Tablet) 10 mg PO TID [facility] Last Admin: 01/22/22 20:51 Dose: 10 mg Benzocaine (Throat Lozenge, Medicated Lozenge) 1 lozenge MUCOUS MEM Q2H PRN PRN Reason: Sore Throat Last Admin: 01/22/22 20:56 Dose: 1 lozenge Buspirone HCl (Buspirone Hcl 10 Mg Tablet) 10 mg PO TID [facility] Last Admin: 01/22/22 20:51 Dose: 10 mg Clonidine HCl (Clonidine Hcl 0.1 Mg Tablet) 0.1 mg PO Q6H PRN; Protocol PRN Reason: opioid withdrawal Last Admin: 01/22/22 20:55 Dose: 0.1 mg Gabapentin (Gabapentin 600 Mg Tablet) 600 mg PO BID [facility] Last Admin: 01/22/22 20:51 Dose: 600 mg Guaifenesin/Dextromethorphan (Guaifenesin Dm 100/10/5 Ml 5 Ml Syrup) 5 ml PO Q6H PRN PRN Reason: cough Last Admin: 01/22/22 20:57 Dose: 5 ml Hydroxyzine HCl (Hydroxyzine Hcl 50 Mg Tablet) 50 mg PO BID PRN PRN Reason: anxiety Last Admin: 01/20/22 22:44 Dose: 50 mg Hydroxyzine HCl (Hydroxyzine Hcl 25 Mg Tablet) 25 mg PO Q6H PRN PRN Reason: Anxiety Loperamide HCl (Loperamide Hcl 2 Mg Capsule) 2 mg PO Q4H PRN PRN Reason: loose stools Magnesium Hydroxide (Milk Of Magnesia 30 Ml Oral.Susp) 30 ml PO DAILY PRN PRN Reason: Constipation Nicotine (Nicotine 21 Mg Patch.Td24) 21 mg TRANSDERMA DAILY [facility] Last Admin: 01/22/22 10:21 Dose: 21 mg Nitrofurantoin Macrocrystals (Nitrofurantoin Monohyd/M-Cryst 100 Mg Capsule) 100 mg PO BID [facility] Last Admin: 01/22/22 20:51 Dose: 100 mg Pharmacy Consult (Consult Rx Perform Med Rec) 1 each MISCELLANE ONCE PRN PRN Reason: Consult order Trazodone HCl (Trazodone Hcl 50 Mg Tablet) 150 mg PO BEDTIME [facility] Last Admin: 01/22/22 20:51 Dose: 150 mg Trazodone HCl (Trazodone Hcl 50 Mg Tablet) 50 mg PO BEDTIME PRN PRN Reason: Insomnia Valacyclovir HCl (Valacyclovir Hcl 500 Mg Tablet) 500 mg PO BID PRN PRN Reason: outbreak Allergies Allergies Allergy/AdvReac Type Severity Reaction Status Date / Time codeine [CODEINE] Allergy Intermediate RASH Verified 01/20/22 00:22 meperidine [Demerol] Allergy Intermediate rash Verified 01/20/22 00:22 seafood AdvReac Unknown Verified 01/20/22 19:25 Assessment & Plan Assessment & Plan (1) Opioid use disorder, moderate, dependence: Status: Acute Code(s): F11.20 - Opioid dependence, uncomplicated (2) Cocaine use disorder, moderate, dependence: Status: Acute Code(s): F14.20 - Cocaine dependence, uncomplicated (3) Substance-induced psychotic disorder with hallucinations: Status: Acute Code(s): F19.951 - Other psychoactive substance use, unspecified with psychoactive substance-induced psychotic disorder with hallucinations Plan Ms. Esqueda is a 41 year-old woman with hx of cocaine and opioid use, who was brought in by father due to pt presenting with tactile and visual hallucination, feeling and seeing bugs coming out of hands. Pt did recently had scabies but she is currently not showing any signs of burrows and skin check we re completed both in the ED and on the unit. Pt appears as guarded, someone confused and speech disorganized. She reported also having suicidal ideation prior to coming to the unit which she now denies but unable to explain what is different today. She denies opioid use when asked, as we offer her comfort meds for opioid withdrawal and utox positive for opioids, fentanyl and cocaine. We discussed risks, benefits and alternative treatment options. will d/c abilify (mostly as pt reports RLS, supect may be more prone to akathisia with this medication). will start low dose of risperidone 0.5mg po BID. PLAN 1. Admit to M3, CV, 3 day notice, 15 minutes checks for safety 2. opioid withdrawal comfort meds order 3. start risperidone 0.5mg po BID 4. Obtain collateral information 5. Aftercare planning. 01/22: D/C risperdal due to hx of SE i.e. galactorrhea, will re-start abilify 10 mg AM for mood stability and buspar 10 mg TID for anxiety 01/23: No med changes, monitor for benefit I spent minutes with the patient and/or on the patient floor today, greater than?50% of which was spent counseling/coordinating care. Patient educated on: therapeutic strategies Reason for contiued inpatient stay Substantial Risk for: med/psych decompensation
[2022-01-23 08:26] VITALS: BP 114/78; PULSE 117; RESP 18; TEMP 36.6; O2SAT 98
[2022-01-23] MEDS: Nitrofurantoin Monohyd/M-Cryst 100 MG CAPSULE PO ×2 (08:28→19:42)
[2022-01-23] MEDS: Nicotine 21 MG PATCH.TD24 TRANSDERMA (08:28)
[2022-01-23] MEDS: ARIPiprazole 10 MG TABLET PO (08:28)
[2022-01-23] MEDS: Baclofen 10 MG TABLET PO ×3 (08:29→19:43)
[2022-01-23] MEDS: Gabapentin 600 MG TABLET PO ×2 (08:29→19:43)
[2022-01-23] MEDS: busPIRone HCl 10 MG TABLET PO ×3 (08:29→19:43)
[2022-01-23] MEDS: Acetaminophen 325 MG TABLET 650 MG PO ×2 (09:40→19:42)
[2022-01-23] MEDS: Throat Lozenge, Medicated LOZENGE 1 LOZENGE MUCOUS MEM ×3 (09:40→19:43)
[2022-01-23] MEDS: guaiFENesin DM 100/10/5 ML 5 ML SYRUP PO ×3 (09:40→19:43)
[2022-01-23 18:23] VITALS: BP 131/78; PULSE 113; RESP 16; TEMP 37; O2SAT 98
[2022-01-23 19:42] VITALS: BP 140/75
[2022-01-23] MEDS: cloNIDine HCL 0.1 MG TABLET PO (19:42)
[2022-01-23] MEDS: traZODone HCL 50 MG TABLET 150 MG PO (19:43)
[2022-01-24 06:00] VITALS: BP 135/85; PULSE 108; RESP 16; TEMP 36.6; O2SAT 98
[2022-01-24] MEDS: guaiFENesin DM 100/10/5 ML 5 ML SYRUP PO ×3 (08:10→20:17)
[2022-01-24] MEDS: Nicotine 21 MG PATCH.TD24 TRANSDERMA (08:10)
[2022-01-24] MEDS: Acetaminophen 325 MG TABLET 650 MG PO ×3 (08:11→20:17)
[2022-01-24] MEDS: Gabapentin 600 MG TABLET PO ×2 (08:11→20:17)
[2022-01-24] MEDS: ARIPiprazole 10 MG TABLET PO (08:11)
[2022-01-24] MEDS: Baclofen 10 MG TABLET PO ×3 (08:11→20:17)
[2022-01-24] MEDS: Throat Lozenge, Medicated LOZENGE 1 LOZENGE MUCOUS MEM ×3 (08:11→20:17)
[2022-01-24] MEDS: busPIRone HCl 10 MG TABLET PO ×3 (08:11→20:17)
[2022-01-24] MEDS: Nitrofurantoin Monohyd/M-Cryst 100 MG CAPSULE PO ×2 (08:11→20:17)
--- NOTE | 2022-01-24 13:07 | HO.PSYCHPN ---
Subjective Subjective Date of Service: 01/24/22 Reason For Visit: si Subjective Notes: Conditional Voluntary and 3 Day Interim History: Pt reports feeling better in that she states I can think more clear, I thought other things were happening Pt visible tapping feet, unable to sit for prolonged periods of time, reports feeling restless and when she has tried to go to groups can't stay still- explained to pt all these symptoms of akathisia- on one had, cocaine use makes her more prone to it, even when not using substance and second- abilify main s/e is akathisia. Pt reports she had hyperprolactenemia (symptomatic it appears at pt had amenorrhea,) with risperidone. We discussed trying low dose of olanzapine and starting propanolol for akathisia. Medication Compliance: Yes Side effects from medications: Yes Attending Groups: Intermittent Review of Systems Acute medical concerns: No Review of Systems Review of Systems Yes all other systems are reviewed and are negative and Unobtainable due to mental status Mental Status Exam Mental Status Exam Narrative: appearance: very malnourish, thin, very poor hygiene, matted hair, in NAD behavior: guarded, indifferent, difficult to engage, although not hostile Psychomotor: no retardation or agitation noted Speech:clear, regular rate/rhythm/volume, spontaneous TP: more logical and coherent TC: feeling better, more clear Mood: better Affect: congruent SI: denies HI: denies VH/AH: reports less VH of bugs, although still reports that we can't see them but she can Delusions: guarded no overt delusional content reported Insight/judgment: improving x 2. memory/cog: alert, oriented x 3. Diagnostics Vital Signs (24Hr): Vital Signs - 24 hr 01/24/22 14:37 01/24/22 20:12 Temperature 98.5 F Pulse Rate 98 100 Respiratory Rate 16 Blood Pressure 132/84 135/80 Pulse Oximetry 99 Oxygen Delivery Method Room Air BMI result Body Mass Index 17.6 Labs Results: 01/20/22 00:59 01/21/22 08:19 Medications Medications Current Medications Acetaminophen (Acetaminophen 325 Mg Tablet) 650 mg PO Q6H PRN PRN Reason: Headache/Pain Mild Scale (1-3) Last Admin: 01/25/22 08:38 Dose: 650 mg Al Hydroxide/Mg Hydroxide (Magnesium Hydrox/Alum Hydrox 30 Ml Oral.Susp) 30 ml PO Q6H PRN PRN Reason: Heartburn/Nausea Baclofen (Baclofen 10 Mg Tablet) 10 mg PO TID [facility] Last Admin: 01/25/22 08:38 Dose: 10 mg Benzocaine (Throat Lozenge, Medicated Lozenge) 1 lozenge MUCOUS MEM Q2H PRN PRN Reason: Sore Throat Last Admin: 01/25/22 08:38 Dose: 1 lozenge Buspirone HCl (Buspirone Hcl 10 Mg Tablet) 10 mg PO TID [facility] Last Admin: 01/25/22 08:38 Dose: 10 mg Clonidine HCl (Clonidine Hcl 0.1 Mg Tablet) 0.1 mg PO Q6H PRN; Protocol PRN Reason: opioid withdrawal Last Admin: 01/24/22 20:17 Dose: 0.1 mg Gabapentin (Gabapentin 600 Mg Tablet) 600 mg PO BID [facility] Last Admin: 01/25/22 08:38 Dose: 600 mg Guaifenesin/Dextromethorphan (Guaifenesin Dm 100/10/5 Ml 5 Ml Syrup) 5 ml PO Q6H PRN PRN Reason: cough Last Admin: 01/25/22 08:40 Dose: 5 ml Hydroxyzine HCl (Hydroxyzine Hcl 50 Mg Tablet) 50 mg PO BID PRN PRN Reason: anxiety Last Admin: 01/20/22 22:44 Dose: 50 mg Hydroxyzine HCl (Hydroxyzine Hcl 25 Mg Tablet) 25 mg PO Q6H PRN PRN Reason: Anxiety Loperamide HCl (Loperamide Hcl 2 Mg Capsule) 2 mg PO Q4H PRN PRN Reason: loose stools Magnesium Hydroxide (Milk Of Magnesia 30 Ml Oral.Susp) 30 ml PO DAILY PRN PRN Reason: Constipation Nicotine (Nicotine 21 Mg Patch.Td24) 21 mg TRANSDERMA DAILY [facility] Last Admin: 01/24/22 08:10 Dose: 21 mg Nitrofurantoin Macrocrystals (Nitrofurantoin Monohyd/M-Cryst 100 Mg Capsule) 100 mg PO BID [facility] Last Admin: 01/25/22 08:38 Dose: 100 mg Olanzapine (Olanzapine 5 Mg Tablet) 5 mg PO BEDTIME [facility] Last Admin: 01/24/22 20:17 Dose: 5 mg Pharmacy Consult (Consult Rx Perform Med Rec) 1 each MISCELLANE ONCE PRN PRN Reason: Consult order Propranolol HCl (Propranolol Hcl 20 Mg Tablet) 20 mg PO BID [facility]; Protocol Last Admin: 01/25/22 08:38 Dose: 20 mg Trazodone HCl (Trazodone Hcl 50 Mg Tablet) 150 mg PO BEDTIME [facility] Last Admin: 01/24/22 20:16 Dose: 150 mg Trazodone HCl (Trazodone Hcl 50 Mg Tablet) 50 mg PO BEDTIME PRN PRN Reason: Insomnia Valacyclovir HCl (Valacyclovir Hcl 500 Mg Tablet) 500 mg PO BID PRN PRN Reason: outbreak Allergies Allergies Allergy/AdvReac Type Severity Reaction Status Date / Time codeine [CODEINE] Allergy Intermediate RASH Verified 01/20/22 00:22 meperidine [Demerol] Allergy Intermediate rash Verified 01/20/22 00:22 seafood AdvReac Unknown Verified 01/20/22 19:25 Assessment & Plan Assessment & Plan (1) Opioid use disorder, moderate, dependence: Status: Acute Code(s): F11.20 - Opioid dependence, uncomplicated (2) Cocaine use disorder, moderate, dependence: Status: Acute Code(s): F14.20 - Cocaine dependence, uncomplicated (3) Substance-induced psychotic disorder with hallucinations: Status: Acute Code(s): F19.951 - Other psychoactive substance use, unspecified with psychoactive substance-induced psychotic disorder with hallucinations Plan Ms. Esqueda is a 41 year-old woman with hx of cocaine and opioid use, who was brought in by father due to pt presenting with tactile and visual hallucination, feeling and seeing bugs coming out of hands. Pt did recently had scabies but she is currently not showing any signs of burrows and skin check we re completed both in the ED and on the unit. Pt appears as guarded, someone confused and speech disorganized. She reported also having suicidal ideation prior to coming to the unit which she now denies but unable to explain what is different today. She denies opioid use when asked, as we offer her comfort meds for opioid withdrawal and utox positive for opioids, fentanyl and cocaine. We discussed risks, benefits and alternative treatment options. will d/c abilify (mostly as pt reports RLS, supect may be more prone to akathisia with this medication). will start low dose of risperidone 0.5mg po BID. PLAN 1. Admit to M3, CV, 3 day notice, 15 minutes checks for safety 2. opioid withdrawal comfort meds order 3. start risperidone 0.5mg po BID 4. Obtain collateral information 5. Aftercare planning. 01/22: D/C risperdal due to hx of SE i.e. galactorrhea, will re-start abilify 10 mg AM for mood stability and buspar 10 mg TID for anxiety 01/23: No med changes, monitor for benefit 01/24: pt showing s/s of akathisia- explained to pt she is more prone to it due to cocaine use and abilify worsening it. she agrees to try olanzapine and try propanolol. I spent minutes with the patient and/or on the patient floor today, greater than?50% of which was spent counseling/coordinating care. Reason for contiued inpatient stay Substantial Risk for: inability to function
[2022-01-24 14:37] VITALS: BP 132/84; PULSE 98
[2022-01-24] MEDS: Propranolol HCL 20 MG TABLET PO ×2 (14:41→20:16)
[2022-01-24 20:12] VITALS: BP 135/80; PULSE 100; RESP 16; TEMP 36.9; O2SAT 99
[2022-01-24] MEDS: traZODone HCL 50 MG TABLET 150 MG PO (20:16)
[2022-01-24] MEDS: OLANZapine 5 MG TABLET PO (20:17)
[2022-01-24] MEDS: cloNIDine HCL 0.1 MG TABLET PO (20:17)
[2022-01-25 08:15] VITALS: BP 113/77; PULSE 90; RESP 18; TEMP 37.8; O2SAT 96
[2022-01-25] MEDS: Nitrofurantoin Monohyd/M-Cryst 100 MG CAPSULE PO ×2 (08:38→20:24)
[2022-01-25] MEDS: Acetaminophen 325 MG TABLET 650 MG PO (08:38)
[2022-01-25] MEDS: Gabapentin 600 MG TABLET PO ×2 (08:38→20:24)
[2022-01-25] MEDS: Baclofen 10 MG TABLET PO ×3 (08:38→20:24)
[2022-01-25] MEDS: Propranolol HCL 20 MG TABLET PO ×2 (08:38→20:24)
[2022-01-25] MEDS: Throat Lozenge, Medicated LOZENGE 1 LOZENGE MUCOUS MEM ×2 (08:38→16:15)
[2022-01-25] MEDS: busPIRone HCl 10 MG TABLET PO ×3 (08:38→20:24)
[2022-01-25] MEDS: guaiFENesin DM 100/10/5 ML 5 ML SYRUP PO ×3 (08:40→20:24)
[2022-01-25] MEDS: Amoxicillin 500 MG CAPSULE PO ×3 (10:31→20:24)
[2022-01-25] MEDS: Simethicone 80 MG TAB.CHEW PO ×2 (10:31→16:15)
[2022-01-25 11:17] LABS: MANUAL DIFF FLAG NO
[2022-01-25 11:21] LABS: Basophils Absolute Auto 0.1 X10*3/uL (0.0-0.2); Basophils Percent Auto 0.5 % (0-2); Eosinophils Absolute Auto 0.3 X10*3/uL (0.0-0.4); Eosinophils Percent Auto 2.9 % (0-4); Hematocrit 40.5 % (37.0-47.0); Hemoglobin 13.3 g/dl (12.0-16.0); Imm Gran Abs Auto 0.04 X10*3/uL (0.00-0.03); Imm Gran Pct Auto 0.4 % (0.0-0.4); Lymphocytes Absolute Auto 2.8 X10*3/uL (1.2-4.9); Lymphocytes Percent Auto 26.4 % (20-40); Mean Corpuscular HGB Conc 32.8 g/dl (31.0-35.0); Mean Corpuscular Hemoglobin 28.7 pg (27.0-33.0); Mean Corpuscular Volume 87.3 fL (80.0-98.0); Monocytes Absolute Auto 0.8 X10*3/uL (0.1-1.2); Monocytes Percent Auto 7.3 % (2-11); Neutrophils Absolute Auto 6.7 x10*3/uL (2.0-8.3); Neutrophils Percent Auto 62.5 % (45-73); Platelet Count 270 X10*3/uL (160-400); Red Blood Count 4.64 X10*6/uL (4.20-5.50); Red Cell Distribution Width 12.9 % (11.0-16.0); White Blood Count 10.6 X10*3/uL (4.8-10.8)
[2022-01-25 11:32] LABS: Adenovirus PCR Not Detected (Not Detect.); Bordetella parapertussis PCR Not Detected (Not Detect.); Bordetella pertussis PCR Not Detected (Not Detect.); Chlamydia pneumoniae PCR Not Detected (Not Detect.); Coronavirus 229E PCR Not Detected (Not Detect.); Coronavirus HKU1 PCR Not Detected (Not Detect.); Coronavirus NL63 PCR Not Detected (Not Detect.); Coronavirus OC43 PCR Not Detected (Not Detect.); Human metapneumovirus PCR Not Detected (Not Detect.); Influenza A PCR Not Detected (Not Detect.); Influenza B PCR Not Detected (Not Detect.); Mycoplasma pneumoniae PCR Not Detected (Not Detect.); Parainfluenza 1 PCR Not Detected (Not Detect.); Parainfluenza 2 PCR Not Detected (Not Detect.); Parainfluenza 3 PCR Not Detected (Not Detect.); Parainfluenza 4 PCR Not Detected (Not Detect.); RSV PCR Not Detected (Not Detect.); Rhino/Enterovirus PCR Not Detected (Not Detect.); SARS-CoV-2 PCR Not Detected (Not Detect.)
[2022-01-25 11:39] LABS: Alanine Aminotransferase 54 U/L (0-31); Albumin Level 3.8 g/dL (3.5-5.0); Alkaline Phosphatase 76 U/L (39-117); Anion Gap 13 (12-20); Aspartate Amino Transferase 38 U/L (5-31); Bilirubin Total 0.4 mg/dL (0.0-1.0); Blood Urea Nitrogen 9 mg/dL (9-16); Carbon Dioxide 25 mmol/L (22-29); Chloride 103 mmol/L (96-108); Creatinine Clr Calc Pharmacy 82.9; Estimated Glomerular Filt Rate > 60; Glucose Random 120 mg/dL (60-115); Potassium 3.7 mmol/L (3.3-5.1); Sodium 137 mmol/L (135-145); Total Protein 7.4 g/dL (6.5-8.0)
[2022-01-25] MEDS: Nicotine 21 MG PATCH.TD24 TRANSDERMA (12:45)
--- NOTE | 2022-01-25 14:40 | HO.PSYCHPN ---
Subjective Subjective Date of Service: 01/25/22 Reason For Visit: si Subjective Notes: Conditional Voluntary Interim History: Pt reports sinus pressure, pain, radiating to ear pain, febrile. No cough, no GI symptoms. respiratory panel, covid neg. Pt started on amoxicillin for sinusitis. Pt reports much less restlessness with propanolol and discontinuation of ability. Pt denies SI/HI. no overt psychosis or delusional content. She states she is looking forward to go to dual dx program. Medication Compliance: Yes Side effects from medications: No Attending Groups: No Mental Status Exam Mental Status Exam Narrative: appearance: very malnourish, thin, very poor hygiene, matted hair, in NAD behavior: guarded, indifferent, difficult to engage, although not hostile Psychomotor: no retardation or agitation noted Speech:clear, regular rate/rhythm/volume, spontaneous TP: more logical and coherent TC: feeling better, more clear Mood: better Affect: congruent SI: denies HI: denies VH/AH: none Delusions:none Insight/judgment: improving x 2. memory/cog: alert, oriented x 3. Diagnostics Vital Signs (24Hr): Vital Signs - 24 hr 01/25/22 20:20 01/26/22 08:00 Temperature 97.6 F Pulse Rate 112 H 78 Respiratory Rate 16 18 Blood Pressure 127/75 110/56 L Pulse Oximetry 98 97 Oxygen Delivery Method Room Air Room Air BMI result Body Mass Index 17.6 Labs Results: 01/25/22 11:12 01/25/22 11:12 Labs: Laboratory Results - last 48 hr 01/25/22 01/25/22 01/25/22 09:15 11:12 11:12 WBC 10.6 RBC 4.64 Hgb 13.3 Hct 40.5 MCV 87.3 MCH 28.7 MCHC 32.8 RDW 12.9 Plt Count 270 MPV 10.0 Immature Gran % (Auto) 0.4 Neut % (Auto) 62.5 Lymph % (Auto) 26.4 [place] % (Auto) 7.3 Eos % (Auto) 2.9 Baso % (Auto) 0.5 Lymph # (Auto) 2.8 [place] # (Auto) 0.8 Eos # (Auto) 0.3 Baso # (Auto) 0.1 Abs Immat Gran (auto) 0.04 H Absolute Neuts (auto) 6.7 Absolute Nucleated RBC 0.000 Nucleated RBC % (auto) 0.0 Sodium 137 Potassium 3.7 Chloride 103 Carbon Dioxide 25 Anion Gap 13 BUN 9 Creatinine 0.73 Estim Creat Clear Calc 82.9 Estimated GFR > 60 Random Glucose 120 H Calcium 9.0 Total Bilirubin 0.4 AST 38 H ALT 54 H Alkaline Phosphatase 76 Total Protein 7.4 Albumin 3.8 Respiratory Panel Vee See note Adenovirus (Rapid PCR) Not Detected B.pert (TEM-PCR) Not Detected B.parapertussis DNA PCR Not Detected C. pneumoniae DNA (PCR) Not Detected Coronavirus OC43 (PCR) Not Detected Coronavirus HKU1 (PCR) Not Detected Coronavirus 229E (PCR) Not Detected Coronavirus NL63 (PCR) Not Detected Human Metapneumovir PCR Not Detected Influenza A (RT-PCR) Not Detected Influenza B (RT-PCR) Not Detected M. pneumoniae (PCR) Not Detected Parainfluenza 1 (PCR) Not Detected Parainfluenza 2 (PCR) Not Detected Parainfluenza 3 (PCR) Not Detected Parainfluenza 4 (PCR) Not Detected RSV (PCR) Not Detected Entero/Rhino (PCR) Not Detected SARS-CoV-2 RNA (RT-PCR) Not Detected Medications Medications Current Medications Acetaminophen (Acetaminophen 325 Mg Tablet) 650 mg PO Q6H PRN PRN Reason: Headache/Pain Mild Scale (1-3) Last Admin: 01/25/22 08:38 Dose: 650 mg Al Hydroxide/Mg Hydroxide (Magnesium Hydrox/Alum Hydrox 30 Ml Oral.Susp) 30 ml PO Q6H PRN PRN Reason: Heartburn/Nausea Amoxicillin (Amoxicillin 500 Mg Capsule) 500 mg PO TID [facility] Stop: 02/01/22 10:14 Last Admin: 01/26/22 09:11 Dose: 500 mg Baclofen (Baclofen 10 Mg Tablet) 10 mg PO TID [facility] Last Admin: 01/26/22 09:11 Dose: 10 mg Benzocaine (Throat Lozenge, Medicated Lozenge) 1 lozenge MUCOUS MEM Q2H PRN PRN Reason: Sore Throat Last Admin: 01/25/22 16:15 Dose: 1 lozenge Buspirone HCl (Buspirone Hcl 10 Mg Tablet) 10 mg PO TID [facility] Last Admin: 01/26/22 09:11 Dose: 10 mg Clonidine HCl (Clonidine Hcl 0.1 Mg Tablet) 0.1 mg PO Q6H PRN; Protocol PRN Reason: opioid withdrawal Last Admin: 01/25/22 20:24 Dose: 0.1 mg Gabapentin (Gabapentin 600 Mg Tablet) 600 mg PO BID [facility] Last Admin: 01/26/22 09:12 Dose: 600 mg Guaifenesin/Dextromethorphan (Guaifenesin Dm 100/10/5 Ml 5 Ml Syrup) 5 ml PO Q6H PRN PRN Reason: cough Last Admin: 01/25/22 20:24 Dose: 5 ml Hydroxyzine HCl (Hydroxyzine Hcl 50 Mg Tablet) 50 mg PO BID PRN PRN Reason: anxiety Last Admin: 01/20/22 22:44 Dose: 50 mg Hydroxyzine HCl (Hydroxyzine Hcl 25 Mg Tablet) 25 mg PO Q6H PRN PRN Reason: Anxiety Loperamide HCl (Loperamide Hcl 2 Mg Capsule) 2 mg PO Q4H PRN PRN Reason: loose stools Magnesium Hydroxide (Milk Of Magnesia 30 Ml Oral.Susp) 30 ml PO DAILY PRN PRN Reason: Constipation Nicotine (Nicotine 21 Mg Patch.Td24) 21 mg TRANSDERMA DAILY [facility] Last Admin: 01/25/22 12:45 Dose: 21 mg Nitrofurantoin Macrocrystals (Nitrofurantoin Monohyd/M-Cryst 100 Mg Capsule) 100 mg PO BID [facility] Last Admin: 01/26/22 09:12 Dose: 100 mg Olanzapine (Olanzapine 5 Mg Tablet) 5 mg PO BEDTIME [facility] Last Admin: 01/25/22 20:24 Dose: 5 mg Pharmacy Consult (Consult Rx Perform Med Rec) 1 each MISCELLANE ONCE PRN PRN Reason: Consult order Propranolol HCl (Propranolol Hcl 20 Mg Tablet) 20 mg PO BID [facility]; Protocol Last Admin: 01/26/22 09:12 Dose: 20 mg Simethicone (Simethicone 80 Mg Tab.Chew) 80 mg PO QIDWMHS PRN PRN Reason: Gas Last Admin: 01/26/22 09:10 Dose: 80 mg Trazodone HCl (Trazodone Hcl 50 Mg Tablet) 150 mg PO BEDTIME [facility] Last Admin: 01/25/22 20:24 Dose: 150 mg Trazodone HCl (Trazodone Hcl 50 Mg Tablet) 50 mg PO BEDTIME PRN PRN Reason: Insomnia Valacyclovir HCl (Valacyclovir Hcl 500 Mg Tablet) 500 mg PO BID PRN PRN Reason: outbreak Allergies Allergies Allergy/AdvReac Type Severity Reaction Status Date / Time codeine [CODEINE] Allergy Intermediate RASH Verified 01/20/22 00:22 meperidine [Demerol] Allergy Intermediate rash Verified 01/20/22 00:22 seafood AdvReac Unknown Verified 01/20/22 19:25 Assessment & Plan Assessment & Plan (1) Opioid use disorder, moderate, dependence: Status: Acute Code(s): F11.20 - Opioid dependence, uncomplicated (2) Cocaine use disorder, moderate, dependence: Status: Acute Code(s): F14.20 - Cocaine dependence, uncomplicated (3) Substance-induced psychotic disorder with hallucinations: Status: Acute Code(s): F19.951 - Other psychoactive substance use, unspecified with psychoactive substance-induced psychotic disorder with hallucinations Plan Ms. Esqueda is a 41 year-old woman with hx of cocaine and opioid use, who was brought in by father due to pt presenting with tactile and visual hallucination, feeling and seeing bugs coming out of hands. Pt did recently had scabies but she is currently not showing any signs of burrows and skin check we re completed both in the ED and on the unit. Pt appears as guarded, someone confused and speech disorganized. She reported also having suicidal ideation prior to coming to the unit which she now denies but unable to explain what is different today. She denies opioid use when asked, as we offer her comfort meds for opioid withdrawal and utox positive for opioids, fentanyl and cocaine. We discussed risks, benefits and alternative treatment options. will d/c abilify (mostly as pt reports RLS, supect may be more prone to akathisia with this medication). will start low dose of risperidone 0.5mg po BID. PLAN 1. Admit to M3, CV, 3 day notice, 15 minutes checks for safety 2. opioid withdrawal comfort meds order 3. start risperidone 0.5mg po BID 4. Obtain collateral information 5. Aftercare planning. 01/22: D/C risperdal due to hx of SE i.e. galactorrhea, will re-start abilify 10 mg AM for mood stability and buspar 10 mg TID for anxiety 01/23: No med changes, monitor for benefit 01/24: pt showing s/s of akathisia- explained to pt she is more prone to it due to cocaine use and abilify worsening it. she agrees to try olanzapine and try propanolol. 01/25 started amoxicillin 500mg po TID for sinus pressured x 7 days. continue current medications. I spent minutes with the patient and/or on the patient floor today, greater than?50% of which was spent counseling/coordinating care. Reason for contiued inpatient stay Substantial Risk for: harm to self
[2022-01-25 20:20] VITALS: BP 127/75; PULSE 112; RESP 16; O2SAT 98
[2022-01-25] MEDS: traZODone HCL 50 MG TABLET 150 MG PO (20:24)
[2022-01-25] MEDS: OLANZapine 5 MG TABLET PO (20:24)
[2022-01-25] MEDS: cloNIDine HCL 0.1 MG TABLET PO (20:24)
[2022-01-26 08:00] VITALS: BP 110/56; PULSE 78; RESP 18; TEMP 36.4; O2SAT 97
[2022-01-26] MEDS: Simethicone 80 MG TAB.CHEW PO ×2 (09:10→17:54)
[2022-01-26] MEDS: busPIRone HCl 10 MG TABLET PO ×3 (09:11→19:55)
[2022-01-26] MEDS: Baclofen 10 MG TABLET PO ×3 (09:11→19:55)
[2022-01-26] MEDS: Amoxicillin 500 MG CAPSULE PO ×3 (09:11→19:55)
[2022-01-26] MEDS: Nitrofurantoin Monohyd/M-Cryst 100 MG CAPSULE PO ×2 (09:12→19:55)
[2022-01-26] MEDS: Propranolol HCL 20 MG TABLET PO ×2 (09:12→19:55)
[2022-01-26] MEDS: Gabapentin 600 MG TABLET PO ×2 (09:12→19:59)
[2022-01-26] MEDS: guaiFENesin DM 100/10/5 ML 5 ML SYRUP PO (09:52)
[2022-01-26] MEDS: Throat Lozenge, Medicated LOZENGE 1 LOZENGE MUCOUS MEM ×3 (09:52→18:45)
--- NOTE | 2022-01-26 12:40 | HO.PSYCHPN ---
Subjective Subjective Date of Service: 01/26/22 Reason For Visit: si Subjective Notes: Conditional Voluntary Interim History: Pt reports feeling calmer, no psychosis, less sinus pressured. Less restlessness. She denies SI/HI. No VH/AH. Afebrile. More visible on the unit, attending some groups. She reports she wants to go to [facility]. Medication Compliance: Yes Side effects from medications: No Review of Systems Review of Systems Yes all other systems are reviewed and are negative and Unobtainable due to mental status Mental Status Exam Mental Status Exam Narrative: appearance: very malnourish, thin, very poor hygiene, matted hair, in NAD behavior: cooperative Psychomotor: no retardation or agitation noted Speech:clear, regular rate/rhythm/volume, spontaneous TP: more logical and coherent TC: feeling better, more clear Mood: better Affect: congruent SI: denies HI: denies VH/AH: none Delusions:none Insight/judgment: improving x 2. memory/cog: alert, oriented x 3. Diagnostics Vital Signs (24Hr): Vital Signs - 24 hr 01/27/22 08:30 01/27/22 19:45 Temperature 98.1 F 98.8 F Pulse Rate 109 H 108 H Respiratory Rate 18 18 Blood Pressure 114/76 132/66 Pulse Oximetry 97 97 Oxygen Delivery Method Room Air Room Air BMI result Body Mass Index 18.3 Labs Results: 01/25/22 11:12 01/25/22 11:12 Medications Medications Current Medications Acetaminophen (Acetaminophen 325 Mg Tablet) 650 mg PO Q6H PRN PRN Reason: Headache/Pain Mild Scale (1-3) Last Admin: 01/27/22 19:50 Dose: 650 mg Al Hydroxide/Mg Hydroxide (Magnesium Hydrox/Alum Hydrox 30 Ml Oral.Susp) 30 ml PO Q6H PRN PRN Reason: Heartburn/Nausea Amoxicillin (Amoxicillin 500 Mg Capsule) 500 mg PO TID [facility] Stop: 02/01/22 10:14 Last Admin: 01/27/22 19:51 Dose: 500 mg Baclofen (Baclofen 10 Mg Tablet) 10 mg PO TID [facility] Last Admin: 01/27/22 19:51 Dose: 10 mg Benzocaine (Throat Lozenge, Medicated Lozenge) 1 lozenge MUCOUS MEM Q2H PRN PRN Reason: Sore Throat Last Admin: 01/27/22 17:26 Dose: 1 lozenge Buspirone HCl (Buspirone Hcl 10 Mg Tablet) 10 mg PO TID [facility] Last Admin: 01/27/22 19:51 Dose: 10 mg Clonidine HCl (Clonidine Hcl 0.1 Mg Tablet) 0.1 mg PO Q6H PRN; Protocol PRN Reason: opioid withdrawal Last Admin: 01/26/22 19:54 Dose: 0.1 mg Fluticasone Propionate (Fluticasone Propionate Nasal 16 Gm [place]) 1 spray NOSTRIL-B DAILY [facility] Last Admin: 01/27/22 10:25 Dose: Not Given Gabapentin (Gabapentin 600 Mg Tablet) 600 mg PO BID [facility] Last Admin: 01/27/22 19:51 Dose: 600 mg Guaifenesin/Dextromethorphan (Guaifenesin Dm 100/10/5 Ml 5 Ml Syrup) 5 ml PO Q6H PRN PRN Reason: cough Last Admin: 01/27/22 19:49 Dose: 5 ml Hydroxyzine HCl (Hydroxyzine Hcl 50 Mg Tablet) 50 mg PO BID PRN PRN Reason: anxiety Last Admin: 01/20/22 22:44 Dose: 50 mg Hydroxyzine HCl (Hydroxyzine Hcl 25 Mg Tablet) 25 mg PO Q6H PRN PRN Reason: Anxiety Loperamide HCl (Loperamide Hcl 2 Mg Capsule) 2 mg PO Q4H PRN PRN Reason: loose stools Loratadine (Loratadine 10 Mg Tablet) 10 mg PO DAILY [facility] Last Admin: 01/27/22 12:09 Dose: 10 mg Magnesium Hydroxide (Milk Of Magnesia 30 Ml Oral.Susp) 30 ml PO DAILY PRN PRN Reason: Constipation Nicotine (Nicotine 21 Mg Patch.Td24) 21 mg TRANSDERMA DAILY [facility] Last Admin: 01/27/22 15:09 Dose: 21 mg Olanzapine (Olanzapine 5 Mg Tablet) 5 mg PO BEDTIME [facility] Last Admin: 01/27/22 19:50 Dose: 5 mg Pharmacy Consult (Consult Rx Perform Med Rec) 1 each MISCELLANE ONCE PRN PRN Reason: Consult order Propranolol HCl (Propranolol Hcl 40 Mg Tablet) 40 mg PO BID [facility]; Protocol Last Admin: 01/27/22 19:51 Dose: 40 mg Simethicone (Simethicone 80 Mg Tab.Chew) 80 mg PO QIDWMHS PRN PRN Reason: Gas Last Admin: 01/27/22 17:25 Dose: 80 mg Trazodone HCl (Trazodone Hcl 50 Mg Tablet) 150 mg PO BEDTIME NANCY Last Admin: 01/27/22 19:49 Dose: 150 mg Trazodone HCl (Trazodone Hcl 50 Mg Tablet) 50 mg PO BEDTIME PRN PRN Reason: Insomnia Valacyclovir HCl (Valacyclovir Hcl 500 Mg Tablet) 500 mg PO BID PRN PRN Reason: outbreak Allergies Allergies Allergy/AdvReac Type Severity Reaction Status Date / Time codeine [CODEINE] Allergy Intermediate RASH Verified 01/20/22 00:22 meperidine [Demerol] Allergy Intermediate rash Verified 01/20/22 00:22 seafood AdvReac Unknown Verified 01/20/22 19:25 Assessment & Plan Assessment & Plan (1) Opioid use disorder, moderate, dependence: Status: Acute Code(s): F11.20 - Opioid dependence, uncomplicated (2) Cocaine use disorder, moderate, dependence: Status: Acute Code(s): F14.20 - Cocaine dependence, uncomplicated (3) Substance-induced psychotic disorder with hallucinations: Status: Acute Code(s): F19.951 - Other psychoactive substance use, unspecified with psychoactive substance-induced psychotic disorder with hallucinations Plan Ms. Esqueda is a 41 year-old woman with hx of cocaine and opioid use, who was brought in by father due to pt presenting with tactile and visual hallucination, feeling and seeing bugs coming out of hands. Pt did recently had scabies but she is currently not showing any signs of burrows and skin check we re completed both in the ED and on the unit. Pt appears as guarded, someone confused and speech disorganized. She reported also having suicidal ideation prior to coming to the unit which she now denies but unable to explain what is different today. She denies opioid use when asked, as we offer her comfort meds for opioid withdrawal and utox positive for opioids, fentanyl and cocaine. We discussed risks, benefits and alternative treatment options. will d/c abilify (mostly as pt reports RLS, supect may be more prone to akathisia with this medication). will start low dose of risperidone 0.5mg po BID. PLAN 1. Admit to M3, CV, 3 day notice, 15 minutes checks for safety 2. opioid withdrawal comfort meds order 3. start risperidone 0.5mg po BID 4. Obtain collateral information 5. Aftercare planning. 01/22: D/C risperdal due to hx of SE i.e. galactorrhea, will re-start abilify 10 mg AM for mood stability and buspar 10 mg TID for anxiety 01/23: No med changes, monitor for benefit 01/24: pt showing s/s of akathisia- explained to pt she is more prone to it due to cocaine use and abilify worsening it. she agrees to try olanzapine and try propanolol. 01/25 started amoxicillin 500mg po TID for sinus pressured x 7 days. continue current medications. 01/26 continue tx. I spent minutes with the patient and/or on the patient floor today, greater than?50% of which was spent counseling/coordinating care. Reason for contiued inpatient stay Substantial Risk for: harm to self
[2022-01-26] MEDS: Nicotine 21 MG PATCH.TD24 TRANSDERMA (14:15)
[2022-01-26] MEDS: Acetaminophen 325 MG TABLET 650 MG PO (18:45)
[2022-01-26 19:05] VITALS: BP 128/77; PULSE 115; RESP 16; TEMP 37.7; O2SAT 96
[2022-01-26 19:53] VITALS: TEMP 37.1
[2022-01-26] MEDS: OLANZapine 5 MG TABLET PO (19:54)
[2022-01-26] MEDS: cloNIDine HCL 0.1 MG TABLET PO (19:54)
[2022-01-26] MEDS: traZODone HCL 50 MG TABLET 150 MG PO (19:55)
[2022-01-27 07:00] VITALS: BMI 18.3
--- NOTE | 2022-01-27 07:43 | HO.PSYCHPN ---
Subjective Subjective Date of Service: 01/27/22 Reason For Visit: si Subjective Notes: Conditional Voluntary Interim History: Pt congested, upper respiratory s/s. Last night febrile low temp 100. Added loratidine, flonase. Pt reports feeling less depressed, no SI/HI. still some tapping on the feet- will increase dose of propanolol. Pt visible and social with select peers. Medication Compliance: Yes Review of Systems Review of Systems Yes all other systems are reviewed and are negative and Unobtainable due to mental status Mental Status Exam Mental Status Exam Narrative: appearance: very malnourish, thin, very poor hygiene, matted hair, in NAD behavior: cooperative Psychomotor: no retardation or agitation noted Speech:clear, regular rate/rhythm/volume, spontaneous TP: more logical and coherent TC: feeling better, more clear Mood: better Affect: congruent SI: denies HI: denies VH/AH: none Delusions:none Insight/judgment: improving x 2. memory/cog: alert, oriented x 3. Diagnostics Vital Signs (24Hr): Vital Signs - 24 hr 01/27/22 08:30 01/27/22 19:45 Temperature 98.1 F 98.8 F Pulse Rate 109 H 108 H Respiratory Rate 18 18 Blood Pressure 114/76 132/66 Pulse Oximetry 97 97 Oxygen Delivery Method Room Air Room Air BMI result Body Mass Index 18.3 Labs Results: 01/25/22 11:12 01/25/22 11:12 Medications Medications Current Medications Acetaminophen (Acetaminophen 325 Mg Tablet) 650 mg PO Q6H PRN PRN Reason: Headache/Pain Mild Scale (1-3) Last Admin: 01/27/22 19:50 Dose: 650 mg Al Hydroxide/Mg Hydroxide (Magnesium Hydrox/Alum Hydrox 30 Ml Oral.Susp) 30 ml PO Q6H PRN PRN Reason: Heartburn/Nausea Amoxicillin (Amoxicillin 500 Mg Capsule) 500 mg PO TID [facility] Stop: 02/01/22 10:14 Last Admin: 01/27/22 19:51 Dose: 500 mg Baclofen (Baclofen 10 Mg Tablet) 10 mg PO TID [facility] Last Admin: 01/27/22 19:51 Dose: 10 mg Benzocaine (Throat Lozenge, Medicated Lozenge) 1 lozenge MUCOUS MEM Q2H PRN PRN Reason: Sore Throat Last Admin: 01/27/22 17:26 Dose: 1 lozenge Buspirone HCl (Buspirone Hcl 10 Mg Tablet) 10 mg PO TID [facility] Last Admin: 01/27/22 19:51 Dose: 10 mg Clonidine HCl (Clonidine Hcl 0.1 Mg Tablet) 0.1 mg PO Q6H PRN; Protocol PRN Reason: opioid withdrawal Last Admin: 01/26/22 19:54 Dose: 0.1 mg Fluticasone Propionate (Fluticasone Propionate Nasal 16 Gm [place]) 1 spray NOSTRIL-B DAILY [facility] Last Admin: 01/27/22 10:25 Dose: Not Given Gabapentin (Gabapentin 600 Mg Tablet) 600 mg PO BID [facility] Last Admin: 01/27/22 19:51 Dose: 600 mg Guaifenesin/Dextromethorphan (Guaifenesin Dm 100/10/5 Ml 5 Ml Syrup) 5 ml PO Q6H PRN PRN Reason: cough Last Admin: 01/27/22 19:49 Dose: 5 ml Hydroxyzine HCl (Hydroxyzine Hcl 50 Mg Tablet) 50 mg PO BID PRN PRN Reason: anxiety Last Admin: 01/20/22 22:44 Dose: 50 mg Hydroxyzine HCl (Hydroxyzine Hcl 25 Mg Tablet) 25 mg PO Q6H PRN PRN Reason: Anxiety Loperamide HCl (Loperamide Hcl 2 Mg Capsule) 2 mg PO Q4H PRN PRN Reason: loose stools Loratadine (Loratadine 10 Mg Tablet) 10 mg PO DAILY [facility] Last Admin: 01/27/22 12:09 Dose: 10 mg Magnesium Hydroxide (Milk Of Magnesia 30 Ml Oral.Susp) 30 ml PO DAILY PRN PRN Reason: Constipation Nicotine (Nicotine 21 Mg Patch.Td24) 21 mg TRANSDERMA DAILY [facility] Last Admin: 01/27/22 15:09 Dose: 21 mg Olanzapine (Olanzapine 5 Mg Tablet) 5 mg PO BEDTIME [facility] Last Admin: 01/27/22 19:50 Dose: 5 mg Pharmacy Consult (Consult Rx Perform Med Rec) 1 each MISCELLANE ONCE PRN PRN Reason: Consult order Propranolol HCl (Propranolol Hcl 40 Mg Tablet) 40 mg PO BID [facility]; Protocol Last Admin: 01/27/22 19:51 Dose: 40 mg Simethicone (Simethicone 80 Mg Tab.Chew) 80 mg PO QIDWMHS PRN PRN Reason: Gas Last Admin: 01/27/22 17:25 Dose: 80 mg Trazodone HCl (Trazodone Hcl 50 Mg Tablet) 150 mg PO BEDTIME NANCY Last Admin: 01/27/22 19:49 Dose: 150 mg Trazodone HCl (Trazodone Hcl 50 Mg Tablet) 50 mg PO BEDTIME PRN PRN Reason: Insomnia Valacyclovir HCl (Valacyclovir Hcl 500 Mg Tablet) 500 mg PO BID PRN PRN Reason: outbreak Allergies Allergies Allergy/AdvReac Type Severity Reaction Status Date / Time codeine [CODEINE] Allergy Intermediate RASH Verified 01/20/22 00:22 meperidine [Demerol] Allergy Intermediate rash Verified 01/20/22 00:22 seafood AdvReac Unknown Verified 01/20/22 19:25 Assessment & Plan Assessment & Plan (1) Opioid use disorder, moderate, dependence: Status: Acute Code(s): F11.20 - Opioid dependence, uncomplicated (2) Cocaine use disorder, moderate, dependence: Status: Acute Code(s): F14.20 - Cocaine dependence, uncomplicated (3) Substance-induced psychotic disorder with hallucinations: Status: Acute Code(s): F19.951 - Other psychoactive substance use, unspecified with psychoactive substance-induced psychotic disorder with hallucinations Plan Ms. Esqueda is a 41 year-old woman with hx of cocaine and opioid use, who was brought in by father due to pt presenting with tactile and visual hallucination, feeling and seeing bugs coming out of hands. Pt did recently had scabies but she is currently not showing any signs of burrows and skin check we re completed both in the ED and on the unit. Pt appears as guarded, someone confused and speech disorganized. She reported also having suicidal ideation prior to coming to the unit which she now denies but unable to explain what is different today. She denies opioid use when asked, as we offer her comfort meds for opioid withdrawal and utox positive for opioids, fentanyl and cocaine. We discussed risks, benefits and alternative treatment options. will d/c abilify (mostly as pt reports RLS, supect may be more prone to akathisia with this medication). will start low dose of risperidone 0.5mg po BID. PLAN 1. Admit to M3, CV, 3 day notice, 15 minutes checks for safety 2. opioid withdrawal comfort meds order 3. start risperidone 0.5mg po BID 4. Obtain collateral information 5. Aftercare planning. 01/22: D/C risperdal due to hx of SE i.e. galactorrhea, will re-start abilify 10 mg AM for mood stability and buspar 10 mg TID for anxiety 01/23: No med changes, monitor for benefit 01/24: pt showing s/s of akathisia- explained to pt she is more prone to it due to cocaine use and abilify worsening it. she agrees to try olanzapine and try propanolol. 01/25 started amoxicillin 500mg po TID for sinus pressured x 7 days. continue current medications. 01/26 continue tx. 01/27 Increase propanolol 40mg po BID. I spent minutes with the patient and/or on the patient floor today, greater than?50% of which was spent counseling/coordinating care. Reason for contiued inpatient stay Substantial Risk for: harm to self
[2022-01-27 08:30] VITALS: BP 114/76; PULSE 109; RESP 18; TEMP 36.7; O2SAT 97
[2022-01-27] MEDS: guaiFENesin DM 100/10/5 ML 5 ML SYRUP PO ×2 (08:37→19:49)
[2022-01-27] MEDS: Acetaminophen 325 MG TABLET 650 MG PO ×2 (08:37→19:50)
[2022-01-27] MEDS: Gabapentin 600 MG TABLET PO ×2 (08:38→19:51)
[2022-01-27] MEDS: Baclofen 10 MG TABLET PO ×3 (08:39→19:51)
[2022-01-27] MEDS: busPIRone HCl 10 MG TABLET PO ×3 (08:39→19:51)
[2022-01-27] MEDS: Amoxicillin 500 MG CAPSULE PO ×3 (08:40→19:51)
[2022-01-27] MEDS: Propranolol HCL 40 MG TABLET PO ×2 (08:46→19:51)
[2022-01-27] MEDS: Simethicone 80 MG TAB.CHEW PO ×2 (12:09→17:25)
[2022-01-27] MEDS: Loratadine 10 MG TABLET PO (12:09)
[2022-01-27] MEDS: Nicotine 21 MG PATCH.TD24 TRANSDERMA (15:09)
[2022-01-27] MEDS: Throat Lozenge, Medicated LOZENGE 1 LOZENGE MUCOUS MEM (17:26)
[2022-01-27 19:45] VITALS: BP 132/66; PULSE 108; RESP 18; TEMP 37.1; O2SAT 97
[2022-01-27] MEDS: traZODone HCL 50 MG TABLET 150 MG PO (19:49)
[2022-01-27] MEDS: OLANZapine 5 MG TABLET PO (19:50)
[2022-01-28 06:00] VITALS: BP 134/72; PULSE 110; RESP 18; TEMP 36.6; O2SAT 98
[2022-01-28] MEDS: Loratadine 10 MG TABLET PO (08:47)
[2022-01-28] MEDS: Acetaminophen 325 MG TABLET 650 MG PO (08:47)
[2022-01-28] MEDS: Gabapentin 600 MG TABLET PO (08:47)
[2022-01-28] MEDS: Simethicone 80 MG TAB.CHEW PO (08:47)
[2022-01-28] MEDS: Fluticasone Propionate Nasal 16 GM SPRAY 1 SPRAY NOSTRIL-B (08:47)
[2022-01-28] MEDS: Propranolol HCL 40 MG TABLET PO (08:47)
[2022-01-28] MEDS: guaiFENesin DM 100/10/5 ML 5 ML SYRUP PO (08:47)
[2022-01-28] MEDS: Baclofen 10 MG TABLET PO (08:47)
[2022-01-28] MEDS: Amoxicillin 500 MG CAPSULE PO (08:48)
[2022-01-28] MEDS: Nicotine 21 MG PATCH.TD24 TRANSDERMA (08:48)
[2022-01-28] MEDS: busPIRone HCl 10 MG TABLET PO (08:48)
--- NOTE | 2022-01-28 11:59 | P.DS_ITS ---
DS: Providers Provider Date of Service: 01/28/22 Date of admission: 01/20/22 15:38 Primary care physician: Unknown Physician DS: Diagnosis Discharge Diagnosis (1) Opioid use disorder, moderate, dependence: Status: Acute (2) Cocaine use disorder, moderate, dependence: Status: Acute (3) Substance-induced psychotic disorder with hallucinations: Status: Acute DS: Medications Discharge Medications Home Medications: Previous Rx's Medication Instructions Recorded amoxicillin 500 mg capsule 500 mg PO TID #14 caps 01/28/22 baclofen 10 mg tablet 10 mg PO TID #90 tabs 01/28/22 buspirone 10 mg tablet 10 mg PO TID #90 tabs 01/28/22 clonidine HCl 0.1 mg tablet 0.1 mg PO BID PRN opioid 01/28/22 withdrawal #30 tabs fluticasone propionate 50 1 spray intranasal BID #16 grams 01/28/22 mcg/actuation nasal spray,suspension gabapentin 600 mg tablet 600 mg PO TID #45 tabs 01/28/22 hydroxyzine HCl 50 mg tablet 50 mg PO TID PRN anxiety #90 tabs 01/28/22 loratadine 10 mg tablet 10 mg PO DAILY #30 tabs 01/28/22 nicotine 21 mg/24 hr daily 21 mg transdermal DAILY #30 ea 01/28/22 transdermal patch olanzapine 5 mg tablet 5 mg PO BEDTIME #30 tabs 01/28/22 propranolol 40 mg tablet 40 mg PO BID #60 tabs 01/28/22 simethicone 80 mg chewable tablet 80 mg PO QIDWMHS PRN Gas #90 tabs 01/28/22 (Gas Relief (simethicone)) trazodone 150 mg tablet 150 mg PO BEDTIME #30 tabs 01/28/22 valacyclovir 500 mg tablet 500 mg PO BID PRN outbreak #14 tabs 01/28/22 Mental Status Exam Mental Status Exam Narrative: appearance: very malnourish, thin, very poor hygiene, matted hair, in NAD behavior: cooperative Psychomotor: no retardation or agitation noted Speech:clear, regular rate/rhythm/volume, spontaneous TP: more logical and coherent TC: feeling better, more clear Mood: better Affect: congruent SI: denies HI: denies VH/AH: none Delusions:none Insight/judgment: improving x 2. memory/cog: alert, oriented x 3. Data Data Completed and Pending Completed studies during hospitalization [Text1]: 01/25/22 01/25/22 01/25/22 09:15 11:12 11:12 WBC 10.6 RBC 4.64 Hgb 13.3 Hct 40.5 MCV 87.3 MCH 28.7 MCHC 32.8 RDW 12.9 Plt Count 270 MPV 10.0 Immature Gran % (Auto) 0.4 Neut % (Auto) 62.5 Lymph % (Auto) 26.4 Saunders % (Auto) 7.3 Eos % (Auto) 2.9 Baso % (Auto) 0.5 Lymph # (Auto) 2.8 Saunders # (Auto) 0.8 Eos # (Auto) 0.3 Baso # (Auto) 0.1 Abs Immat Gran (auto) 0.04 H Absolute Neuts (auto) 6.7 Absolute Nucleated RBC 0.000 Nucleated RBC % (auto) 0.0 Sodium 137 Potassium 3.7 Chloride 103 Carbon Dioxide 25 Anion Gap 13 BUN 9 Creatinine 0.73 Estim Creat Clear Calc 82.9 Estimated GFR > 60 Random Glucose 120 H Calcium 9.0 Total Bilirubin 0.4 AST 38 H ALT 54 H Alkaline Phosphatase 76 Total Protein 7.4 Albumin 3.8 Respiratory Panel Vee See note Adenovirus (Rapid PCR) Not Detected B.pert (TEM-PCR) Not Detected B.parapertussis DNA PCR Not Detected C. pneumoniae DNA (PCR) Not Detected Coronavirus OC43 (PCR) Not Detected Coronavirus HKU1 (PCR) Not Detected Coronavirus 229E (PCR) Not Detected Coronavirus NL63 (PCR) Not Detected Human Metapneumovir PCR Not Detected Influenza A (RT-PCR) Not Detected Influenza B (RT-PCR) Not Detected M. pneumoniae (PCR) Not Detected Parainfluenza 1 (PCR) Not Detected Parainfluenza 2 (PCR) Not Detected Parainfluenza 3 (PCR) Not Detected Parainfluenza 4 (PCR) Not Detected RSV (PCR) Not Detected Entero/Rhino (PCR) Not Detected SARS-CoV-2 RNA (RT-PCR) Not Detected 01/20/22 Unknown Urine clean catch - Urine johnson top Urine Culture - Final Lactobacillus species DS: Summary Hospital Course Hospital Course: HPI: Subjective Notes: Shrestha Warning, Conditional Voluntary and 3 Day Narrative: Ms. Esqueda is a 41 year-old woman with hx of substance use. Per [facility] records, pt was brought in by father as pt was reporting seeing bugs crawling on her skin and coming out of her hands. It appears that pt had also report suicidal ideation. It appears that Jenaro recently had scabies and was treated for it, but she has continued to report that she that she sees bugs which her parents report are not the case. In the ED, her utox was positive for opiods, fentanyl, cocaine. Pt was assessed both in the ED and on the unit, no signs of burrows or rash. On the unit, pt presents as withdrawn, guarded and somnolent and at times difficult to engage in meaningful or longer conversations as her attention is poor. Pt reports that she was seeing bugs coming out of her hands (no visible signs of rash on palms to indicate this). Pt also reports she was suicidal but no anymore. However, not able to explain what is different today that she is no longer suicidal. Pt appears internally preoccupied. When asked about substance use, pt denies opioid use, however, was positive for both opioids and fentanyl. Pt did report to RN that she uses opioids to help calm down from using cocaine. Interview is limited as pt goes back to sleep and would not wake up for few more minutes to complete interview. Past Psychiatric History: Inpatient:none OP: none Past trials: carol rosas Medical Evaluation Reviewed: Yes HOSPITAL COURSE On the unit, Ms. Esqueda was admitted on CV and placed on 15 minutes checks for safety. Pt presented as psychotic thinking bugs coming out of her skin and also with some degree of confusion. She was noted to have akathisia which she could be more prone given chronic cocaine use. Pt fairly quickly clear up with low dose antipsychotic. Initially she was switched to risperidone from abilify as abilify worsens akathisia (it this case her akathis thought to be primarily as result of cocaine use and most likely is chronic regardless of removal of causative agent cocaine or antipsychotic induced). However, as pt cleared up she reported hx of hyperprolactemenia, with symptoms including gynecomastic, amenorrhea. She was switched to olanzapine. She was started on propanolol with good effect. She had sinus infection with low grade fever, started on amoxicillin 500mg po TID x 7 days. She still has to take 4.5 days worth of antibiotic. She denied suicidal or homicidal ideation. She initially agreed to be referred to CSS program. She called several times to [facility] but there was no bed open. She asked to be discharged as she was psychiatrically stable and agreed to follow up with referrals for CSS in the community. She was given narcan on discharge- harm reduction. Family came to pick her up and denied safety concerns related to suicidal or psychosis at time of discharge. Time spent discussing smoking cessation with patient: more than 10 minutes Status at Discharge Cognitive/behavioral status at discharge: Pt is thin, malnourish secondary to cocaine use. She presents with with bright, at times irritable mood. No SI/HI. No VH/AH. Future oriented. Sleeping and eating better. No delusional content noted or reported. Functional status at discharge: independent ambulation Overall status at discharge: patient is progressing back to baseline Time Spent with Patient Time attestation: Total time spent providing and/or coordinating discharge services: Discharge Plan Discharge Anticipated Discharge Date/Time: 01/28/22 11:39 Patient Disposition: Home, Self-Care Discharge Diagnosis: Bipolar Disorder Cocaine USe Disorder OPioid Use disorder Referrals: Therapy [Other] - 1 Day (A referral has been sent. Please call to follow-up on an appointment. ) Medication Provider [Other] - 1 Day (A referral has been sent. Please call to follow-up on an appointment.) [facility] [Physician] - 1 Week Discharge Medications: New amoxicillin 500 mg Capsule 500 mg PO TID Qty: 14 0RF clonidine HCl 0.1 mg Tablet 0.1 mg PO BID PRN (Reason: opioid withdrawal) Qty: 30 0RF Protocol: Hold for SBP< HOLD for SBP < : 90 gabapentin 600 mg Tablet 600 mg PO TID Qty: 45 0RF hydroxyzine HCl 50 mg Tablet 50 mg PO TID PRN (Reason: anxiety) Qty: 90 0RF valacyclovir 500 mg Tablet 500 mg PO BID PRN (Reason: outbreak) Qty: 14 0RF propranolol 40 mg Tablet 40 mg PO BID Qty: 60 0RF Protocol: Hold for SBP/HR < HOLD for SBP < : 90 HOLD for HR < : 60 baclofen 10 mg Tablet 10 mg PO TID Qty: 90 0RF nicotine 21 mg/24 hr Patch 24 Hour 21 mg transdermal DAILY Qty: 30 0RF loratadine 10 mg Tablet 10 mg PO DAILY Qty: 30 0RF trazodone 150 mg tablet 150 mg PO BEDTIME Qty: 30 0RF olanzapine 5 mg Tablet 5 mg PO BEDTIME Qty: 30 0RF buspirone 10 mg Tablet 10 mg PO TID Qty: 90 0RF fluticasone propionate 50 mcg/actuation spray,suspension 1 spray intranasal BID Qty: 16 0RF Rx Instructions: administer into each nostril simethicone [Gas Relief (simethicone)] 80 mg Tablet,Chewable 80 mg PO QIDWMHS PRN (Reason: Gas) Qty: 90 0RF Discontinued hydroxyzine HCl 50 mg tablet 50 mg PO BID PRN (Reason: anxiety) 30 Days Qty: 60 6RF aripiprazole 10 mg tablet 10 mg PO DAILY 90 Days Qty: 90 1RF gabapentin 600 mg tablet 600 mg PO BID 30 Days Qty: 60 1RF trazodone 150 mg tablet 150 mg PO BEDTIME 90 Days Qty: 90 1RF baclofen 10 mg tablet 10 mg PO TID 30 Days Qty: 90 2RF paroxetine HCl 10 mg tablet 10 mg PO DAILY 90 Days Qty: 90 0RF permethrin 5 % cream 1 appl topical Q14D Qty: 60 1RF Rx Instructions: apply second treatment 14 days after first treatment if symptoms persist ibuprofen 600 mg tablet 600 mg PO Q8H PRN (Reason: pain) Qty: 30 0RF valacyclovir 500 mg tablet 500 mg PO BID PRN (Reason: outbreak) 3 Days Qty: 6 5RF Discharge Orders: Discharge Order (Routine); Ordered 01/28/22 Ordered By: Landy Guevara Diet: Regular diet Activity on Discharge: As tolerated Stand Alone Forms: Patient Portal Discharge page, Community Support Activity Restrictions/Additional Instructions: Please discharged on Macrobid for UTI. Care Plan Goals: 1. Maintain mood 2. No SI/HI. 3. Harm reduction- given narcan at time of discharge Health Concerns: Follow up with PCP Plan of Treatment: 1. Take medications as prescribed 2. Go to nearest ED or call 911 in event of emergency. Assessment: Pt with brighter affect. No signs of psychosis. No SI/HI. No signs of aggression towards self or others. Harm reduction discussed at length- given narcan on discharge.
== END 2022-01-28 12:19 | disposition home or self-care (01) | DRG 753 ==
LOC: HO.ED 14:18 → HO.PADLT16 16:25
PROVIDERS: Physician Assistant; Registered Nurse; Admitting Provider Psychiatry & Neurology Psychiatry; Emergency Provider Emergency Medicine Emergency Medical Services; Visit Provider Social Worker
DX: F31.9 Bipolar disorder, unspecified (principal); R45.851 Suicidal ideations; F14.251 Cocaine dependence with cocaine-induced psychotic disorder with hallucinations; F11.20 Opioid dependence, uncomplicated; F17.210 Nicotine dependence, cigarettes, uncomplicated; N39.0 Urinary tract infection, site not specified; Z20.822 Contact with and (suspected) exposure to COVID-19; Z71.6 Tobacco abuse counseling; Z91.013 Allergy to seafood; Z88.5 Allergy status to narcotic agent; Z88.8 Allergy status to other drugs, medicaments and biological substances; Z79.51 Long term (current) use of inhaled steroids; Z79.899 Other long term (current) drug therapy
CPT/HCPCS: 36415; 80053; 80061; 80307; 81001; 81025; 82077; 82607; 83036; 83735; 84443; 85025; 87086; 87633; 87635; 93005; 99285